=== PATIENT | female | born 1970 | race Caucasian/White ===

== ENCOUNTER → 2018-09-11 08:17 | Outpatient (CLI) | payer OTHER, SELFPAY ==
[2018-09-11 09:51] LABS: Absolute Lymphocyte Count 1.66 X10^3/ul (0.83-4.51); Absolute Neutrophil Count 3.7 X10^3/uL (2.0-7.7); Basophil# 0.02 X10^3/uL; Basophil% 0.3 % (0-1); Eosinophil# 0.18 X10^3/uL; Hematocrit 38.4 % (37-47); Hemoglobin 13.1 g/dl (12.0-15.0); Lymphocyte # 1.66 X10^3/ul (4.0); Lymphocyte % 27.7 % (19-41); Mean Corp Hgb Conc 34.1 g/gl (32-36); Mean Corpuscular Hgb 28.7 pg (27.0-32.0); Mean Corpuscular Volume 84.2 fL (81-99); Mean Platelet Vol. 9.8 fl (6.2-12.0); Monocyte# 0.45 X10^3/uL; Monocyte% 7.5 % (0-10); Neutrophil # 3.67 X10^3/uL (2.7-7.7); Neutrophil % 61.2 % (47-70); Platelet Count 305 K/mm3 (150-450); RBC Distribution Width CV 13.3 % (11.6-14.6); Red Blood Count 4.56 M/mm3 (4.2-5.4)
[2018-09-11 09:55] LABS: POSITIVE COUNT NO; POSITIVE DIFFERENTIAL NO; POSITIVE MORPHOLOGY NO
[2018-09-11 10:19] LABS: Color, Urine Yellow (Yellow); Glucose, Dipstick Normal (Normal); Ketone-Dipstick Negative (Negative); Leukocyte Esterase-Dipstick Negative /ul (Negative); Nitrite-Dipstick Negative (Negative); Occult Blood-Urine 10 /ul (Negative); Protein-Dipstick Negative (Negative); Urine Bilirubin Dipstick Negative (Negative); Urine Clarity Sl. Cloudy (Clear); Urine Urobilinogen Normal (Normal); Urine pH 6.5 (5.0 - 8.0)
[2018-09-11 10:29] LABS: AST(SGOT) 13 U/L (15-37); Alanine Aminotransfer ALT/SGPT 16 U/L (13-56); Albumin, Serum 3.3 g/dL (3.2-5.0); Alkaline Phosphatase 102 U/L (45-117); Anion Gap 8 (5-15); BUN 7 mg/dL (7-18); Calcium,Total 8.2 mg/dL (8.5-10.1); Chloride 109 mmol/L (98-107); Cholesterol 156 mg/dL (200); Creatinine, Serum 0.88 mg/dL (0.55-1.02); EST Glomerular Filtration Rate 74 mL/min (>60); Est Glom Filt Rate - Afr Amer 90 mL/min (>60); Globulin 3.4 g/dL (2.2-4.2); Glucose 85 mg/dL (74-106); High Density Lipoprotein 45 mg/dL; Potassium 3.8 mmol/L (3.5-5.1); Protein, Total 6.7 g/dL (6.4-8.2); Sodium Level 142 mmol/L (136-145); Triglycerides 65 mg/dL; Very Low Density Lipoprotein 13 mg/dL (5-40)
[2018-09-11 10:30] LABS: Vitamin D,25 Hydroxy 48.9 ng/mL (29.95-100.01)
--- OUTSIDE RECORDS SUMMARY | 2018-11-13 15:37 | XMS RPT_ITS ---
:1970 Author Organization [facility] Care Team Providers Name Role Phone KAYLEY GONZALES (KELBY) Attending Unavailable KAYLEY GONZALES (KELBY) Referring Unavailable KAYLEY GONZALES (KELBY) Referring Unavailable Lio Crisostomo Attending Unavailable Lio Crisostomo Referring Unavailable Lio Crisostomo Primary Care Unavailable PROBLEMS PROBLEMS DATE TYPE CONDITION / CODE ATTENDING STATUS SOURCE 09/11/2018 Unknown Z00.00 - Encounter Lio Crisostomo Active [place] for [facility] examination Repository without abnormal findings / Z00.00(ICD-10) 03/31/2018 Active Excessive and NA Active [facility] frequent Main [place] menstruation with Repository regular cycle / N92.0(ICD-10) 03/31/2018 Active Other malaise / NA Active [facility] R53.81(ICD-10) [place] Repository 03/31/2018 Active Other fatigue / NA Active [facility] R53.83(ICD-10) [place] Repository PROCEDURES PROCEDURES No Procedure Records FoundRESULTS RESULTS CBC W/DIFF, AUTOMATED Collected: 09/11/2018 Status: F Source: [place] 8:[place] [facility] [place] CODE TESTS RESULT OUT OF RANGE REFERENCE UNITS LAB L100.1000 4.4-11.0 K/mm3 Normal WBC 6.0 LAB L100.1200 4.2-5.4 M/mm3 Normal RBC 4.56 LAB L100.1300 12.0-15.0 g/dl Normal HGB 13.1 LAB L100.1400 37-47 % Normal HCT 38.4 LAB L100.1500 81-99 fL Normal MCV 84.2 LAB L100.1600 27.0-32.0 pg Normal MCH 28.7 LAB L100.1700 32-36 g/gl Normal MCHC 34.1 LAB L100.1810 11.6-14.6 % Normal RDW CV 13.3 LAB L100.1820 35.1-43.9 fl Normal RDW SD 40.0 LAB L100.1900 150-450 K/mm3 Normal PLT 305 LAB L100.2000 6.2-12.0 fl Normal MPV 9.8 LAB L100.2100 47-70 % Normal NEUT% 61.2 LAB L100.2200 19-41 % Normal LY% 27.7 LAB L100.2300 0-10 % Normal MONO% 7.5 LAB L100.2400 0-5 % Normal EO% 3.0 LAB L100.2500 0-1 % Normal BASO% 0.3 LAB L100.2550 0.0-0.9 % Normal IM GRAN % 0.300 Result Comment: IG% - Immature Granulocytes (promyelocytes, myelocytes and metamyelocytes) > 1% indicates that a LEFT SHIFT is Present. LAB L100.2620 2.0-7.7 X10 3/uL Normal Absolute Neut 3.7 LAB L100.2720 0.83-4.51 X10 3/ul Normal Absolute Lymph 1.66 Performed By: #### L100.0100 #### [facility] [address] [place] [address]. [place], [place], [address] URINALYSIS, ROUTINE Collected: 09/11/2018 Status: F Source: [place] ([place]) 8:[place] [facility] [place] Order Comment: How was Urine Obtained? CLEAN CATCH TYPE CODE TESTS RESULT OUT OF RANGE REFERENCE UNITS LAB L400.3000 Yellow COLOR Normal Yellow LAB L400.3050 Clear Normal CLARITY Sl. Cloudy LAB L400.3200 Normal mg/dl Normal GLUCOSE, UR Normal LAB L400.3300 Negative mg/dL Normal BILIRUBIN URINE Negative LAB L400.3400 Negative mg/dl Normal KETONE UR Negative LAB L400.3465 1.002-1.030 Normal SP.GR. DIPSTX 1.010 LAB L400.3550 5.0 - 8.0 pH UR Normal 6.5 LAB L400.3600 Negative mg/dl PROT Normal DIPSTX Negative LAB L400.3700 Normal mg/dl Normal UROBILI Normal LAB L400.3750 Negative Normal NITRITE UR Negative LAB L400.3780 Negative /ul High 10 OCCULT BLOOD-UR LAB L400.3800 Negative /ul LEUK Normal ESTERASE Negative Performed By: #### L400.2010 #### [facility] [address] [place], [address] COMPREHENSIVE METABOLIC Collected: 09/11/2018 Status: F Source: [facility] 8:[place] AM [facility] [place] CODE TESTS RESULT OUT OF RANGE REFERENCE UNITS LAB L501.0100 74-106 mg/dL Normal GLU 85 Result Comment: Please note revised GLUCOSE reference range effective 2017. LAB L501.1000 7-18 mg/dL Normal BUN 7 LAB L501.1100 0.55-1.02 mg/dL Normal CREAT,SERUM 0.88 Result Comment: The validity of the calculated GFR AND GFRAA in patients over 70 years has not been determined. Clinical correlation is essential. LAB L501.1110 >60 mL/min Normal EST GFR 74 Result Comment: Non- GFR Calc LAB L501.1115 >60 mL/min Normal EST GFR - AA 90 Result Comment: GFR Calc LAB L501.1300 10-20 RATIO Low BUN/CRE 8.0 LAB L501.1500 6.4-8.2 g/dL Normal T PROT 6.7 LAB L501.1800 3.2-5.0 g/dL Normal ALB 3.3 LAB L501.1950 2.2-4.2 g/dL Normal GLOB 3.4 LAB L501.2000 0.9-2.4 RATIO Normal A/G 1.0 LAB L501.2200 8.5-10.1 mg/dL Low CA 8.2 LAB L501.4100 15-37 U/L Low AST 13 LAB L501.4305 45-117 U/L Normal ALK P 102 LAB L501.4405 13-56 U/L Normal ALT 16 LAB L501.4600 0.20-1.00 mg/dL Normal T BILI 0.20 LAB L501.5300 136-145 mmol/L Normal NA 142 LAB L501.5600 3.5-5.1 mmol/L Normal K 3.8 LAB L501.5900 98-107 mmol/L High CL 109 LAB L501.6100 21.0-32.0 mmol/L Normal CO2 25.0 LAB L501.6200 5-15 Normal GAP 8 Performed By: #### L500.4050, L500.4100 #### [facility] [address] [facility] [place], [place], [address] LIPID PROFILE Collected: 09/11/2018 Status: F Source: [place] 8:[place] AM [facility] [place] TYPE CODE TESTS RESULT OUT OF RANGE REFERENCE UNITS LAB L501.4900 200 mg/dL Normal CHOL 156 Result Comment: <200 mg/dL Desirable 200-240 mg/dL Borderline >240 mg/dL High Risk LAB L501.5000 mg/dL Normal TRIG 65 Result Comment: The drugs N-Acetylcysteine and Metamizole may falsely depress this assay. Serum Triglycerides Reference Interval Normal <150 mg/dL Borderline high 150 - 199 mg/dL High 200 - 499 mg/dL Very High > or = 500 mg/dL LAB L501.6400 mg/dL Normal HDL 45 Result Comment: The drugs N-Acetylcysteine and Metamizole may falsely depress this assay. Reference Range HDL <40 mg/dL Low HDL Cholesterol HDL >or= 60 mg/dL High HDL Cholesterol LAB L501.6500 0-130 mg/dL Normal LDL 98 LAB L501.6600 5-40 mg/dL Normal VLDL 13 Performed By: #### L500.4050, L500.4100 #### [facility] [address] [facility] [place], [place], [address] VITAMIN D,25 HYDROXY Collected: 09/11/2018 Status: F Source: [place] 8:[place] AM [facility] [place] TYPE CODE TESTS RESULT OUT OF RANGE REFERENCE UNITS LAB L506.1000 29.95-100.01 ng/mL Normal Vitamin D 48.9 25-OH Result Comment: Vitamin D 25(OH) Status Range Deficiency <20 ng/mL (50nmol/L) Insuffciency 20 - 30 ng/mL (50 - 75 nmol/L) Sufficiency 30 - 100 ng/mL (75 - 250 nmol/L) Toxicity >100 ng/mL (>250 nmol/L) Performed By: #### L506.1000 #### [facility] [address] [place], [address] PROGRESS Observed: 08/23/2018 Status: COMPLETED Source: [place] 9:22 AM [facility] REPOSITORY HNO ID: [id number] Author: Yary Rae Service: (none) Author Type: Physician Assistant Customer Service Manager Type: Progress Notes Filed: 08/23/2018 10:01 AM Note Text: 08/23/2018 Patient presents with: cough, congestion and ST: x 1.5 weeks SUBJECTIVE: This is a 48 year old that is here today for Complaint(s) of cough and congestion x 1.5 weeks. Has had a dry cough for the last 3-4 weeks. + intermittent SOB. Denies fever/chills, nasal congestion, wheezing, vomiting, diarrhea, sore throat. No hx of asthma, non-smoker. Overall feels well other than cough. PAST MEDICAL HISTORY Diagnosis Date - Abnormal glandular Papanicolaou smear of cervix Abn. Pap smear (cervix) - resolved. - Left thyroid nodule ALLERGIES Patient has no known allergies. MEDICATIONS Current Outpatient Prescriptions: CALCIUM CARBONATE (CALCIUM 500 ORAL) Take by mouth. Cholecalciferol, Vitamin D3, (VITAMIN D-3) 2,000 unit cap Take by mouth twice daily. FERROUS SULFATE (IRON ORAL) Take by mouth. OTC NUTRITIONAL SUPPLEMENT Thyroidysm vitamin, 1 tablet three times daily with meals. VITAMIN B-12 50 MCG TAB Take two tablet's, two times daily No current facility-administered medications for this visit. SOCIAL HISTORY Social History Marital status: Spouse name: Abigail Years of education: 12 Number of children: 2 Occupational History Occupation Employer Comment [employer] Social History Main Topics Smoking status: Never Smoker Smokeless tobacco: Never Used Alcohol use: Yes Comment: Occasionally Drug use: No Sexual activity: Yes Partners with: Male control/protection: Vasectomy Comment: has vasectomy REVIEW OF SYSTEMS All other reviewed and negative other than HPI. OBJECTIVE: BP 138/86 Pulse 85 Temp 36.6 ?C (97.9 ?F) (Tympanic) Resp 16 Wt 116.8 kg (257 lb 6.4 oz) SpO2 98% BMI 38.01 kg/m? APPEARANCE Well appearing, alert, in no acute distress, well-hydrated, well nourished. EYES PERRLA, conjunctiva and sclera normal. EARS External ears normal, canals clear. TMs normal JAYE NOSE/SINUS Nares normal. Septum midline. Mucosa normal. No drainage or sinus tenderness. THROAT normal, no erythema NECK Supple, no adenopathy; HEART RRR with normal S1 and S2 LUNG clear to auscultation, No wheezing, rhonchi, rales. ASSESSMENT/PLAN: 1. Bronchitis - ICD9: 490, ICD10: J40 Supportive care with fluids and rest Suspect viral etiology F/u in 7-10 days (has routine check with PCP in 12 days) if not improving. Sooner if worsening - BENZONATATE 100 MG CAPSULE - PREDNISONE 20 MG TABLET Sudafed The patient indicates understanding of these issues and agrees with the plan. Reviewed red flags and when to seek care sooner. Yary Rae PA-C CNOV Observed: 08/23/2018 Status: COMPLETED Source: [place] 9:15 AM [facility] REPOSITORY Office Visit (WSTR) IRA CONDE ([id number]) 1970 F Date Time Provider Department 08/23/18 9:15 AM YARY RAE) W[facility] During your visit today, we recorded the following information about you: Temperature Pulse Respiration Blood pressure 97.9 degrees 85/minute 16/minute 138/86 Weight 116.8 kg Yary Rae PA-C 08/23/2018 10:01 AM Signed 08/23/2018 Patient presents with: cough, congestion and ST: x 1.5 weeks SUBJECTIVE: This is a 48 year old that is here today for Complaint(s) of cough and congestion x 1.5 weeks. Has had a dry cough for the last 3-4 weeks. + intermittent SOB. Denies fever/chills, nasal congestion, wheezing, vomiting, diarrhea, sore throat. No hx of asthma, non-smoker. Overall feels well other than cough. PAST MEDICAL HISTORY Diagnosis Date - Abnormal glandular Papanicolaou smear of cervix Abn. Pap smear (cervix) - resolved. - Left thyroid nodule ALLERGIES Patient has no known allergies. MEDICATIONS Current Outpatient Prescriptions: CALCIUM CARBONATE (CALCIUM 500 ORAL) Take by mouth. Cholecalciferol, Vitamin D3, (VITAMIN D-3) 2,000 unit cap Take by mouth twice daily. FERROUS SULFATE (IRON ORAL) Take by mouth. OTC NUTRITIONAL SUPPLEMENT Thyroidysm vitamin, 1 tablet three times daily with meals. VITAMIN B-12 50 MCG TAB Take two tablet's, two times daily No current facility-administered medications for this visit. SOCIAL HISTORY Social History Marital status: Spouse name: Abigail Years of education: 12 Number of children: 2 Occupational History Occupation Employer Comment [employer] Social History Main Topics Smoking status: Never Smoker Smokeless tobacco: Never Used Alcohol use: Yes Comment: Occasionally Drug use: No Sexual activity: Yes Partners with: Male control/protection: Vasectomy Comment: has vasectomy REVIEW OF SYSTEMS All other reviewed and negative other than HPI. OBJECTIVE: BP 138/86 Pulse 85 Temp 36.6 ?C (97.9 ?F) (Tympanic) Resp 16 Wt 116.8 kg (257 lb 6.4 oz) SpO2 98% BMI 38.01 kg/m? APPEARANCE Well appearing, alert, in no acute distress, well- hydrated, well nourished. EYES PERRLA, conjunctiva and sclera normal. EARS External ears normal, canals clear. TMs normal JAYE NOSE/SINUS Nares normal. Septum midline. Mucosa normal. No drainage or sinus tenderness. THROAT normal, no erythema NECK Supple, no adenopathy; HEART RRR with normal S1 and S2 LUNG clear to auscultation, No wheezing, rhonchi, rales. ASSESSMENT/PLAN: 1. Bronchitis - ICD9: 490, ICD10: J40 Supportive care with fluids and rest Suspect viral etiology F/u in 7-10 days (has routine check with PCP in 12 days) if not improving. Sooner if worsening - BENZONATATE 100 MG CAPSULE - PREDNISONE 20 MG TABLET Sudafed The patient indicates understanding of these issues and agrees with the plan. Reviewed red flags and when to seek care sooner. Yary Rae PA-C Referring Provider: SELF [200] Allergies As of Date: 08/23/2018 (No Known Allergies) Date Reviewed: 08/23/2018 Reviewed by: Yaa Priest LPN - Fully Assessed Reason for Visit: cough, congestion and ST [Other] Cmt: x 1.5 weeks Primary Visit Diagnosis:Bronchitis [J40] Order(s):benzonatate (TESSALON PERLES) 100 mg capsuleTake 1 capsule by mouth three times daily as needed for Cough.Disp: 30 capsuleRfl: 0 predniSONE (DELTASONE) 20 mg tabletTake 2 tablets by mouth once daily for 5 days.Disp: 10 tabletRfl: 0 Prescriptions as of 08/23/2018 Sig: CALCIUM 500 ORAL Take by mouth. CHOLECALCIFEROL (VITAMIN D3) * Take by mouth twice daily. IRON ORAL Take by mouth. OTC NUTRITIONAL SUPPLEMENT Thyroidysm vitamin, 1 tablet * * VITAMIN B-12 50 MCG TABLET Take two tablet's, two times * BENZONATATE 100 MG CAPSULE Take 1 capsule by mouth three* PREDNISONE 20 MG TABLET Take 2 tablets by mouth once * Problem List As Of Date 08/23/2018 Noted Resolved Thyroid nodule [E04.1] INVALID FOR* Menometrorrhagia [N92.1] INVALID FOR* Prescriptions ordered this encounter Disp Refills Start End BENZONATATE 100 MG CAPSULE 30 c* 0 08/23/2018 Route: ORAL Sig: Take 1 capsule by mouth three times daily as needed for Cough. PREDNISONE 20 MG TABLET 10 t* 0 08/23/2018 08/28/2018 Route: ORAL Sig: Take 2 tablets by mouth once daily for 5 days. Encounter Status:Closed by YARY RAE PA-C on 08/23/18 CBC AND DIFFERENTIAL Collected: 03/31/2018 Status: F Source: [place] 9:02 AM [facility] [place] REPOSITORY TYPE CODE TESTS RESULT OUT OF REFERENCE UNITS RANGE LAB WBC 3.70-11.00 k/uL WBC 6.88 LAB RBC 3.90-5.20 m/uL RBC 4.45 LAB HGB 11.5-15.5 g/dL Hemoglobin 12.6 LAB HCT 36.0-46.0 % Hematocrit 40.1 LAB MCV 80.0-100.0 fL MCV 90.1 LAB MCH 26.0-34.0 pG MCH 28.3 LAB MCHC 30.5-36.0 g/dL MCHC 31.4 LAB RDWCV 11.5-15.0 % RDW-CV 13.2 LAB PLTCT 150-400 k/uL Platelet Count 284 LAB MPV 9.0-12.7 fL MPV 9.7 LAB ANEUT % Neut% 61.1 LAB AANEUT 1.45-7.50 k/uL Abs Neut 4.20 LAB ALYMP % Lymph% 25.6 LAB AALYMP 1.00-4.00 k/uL Abs Lymph 1.76 LAB AMONO % Glasscock% 10.3 LAB AAMONO <0.87 k/uL Abs [place]cock 0.71 LAB AEOS % Eosin% 2.6 LAB AAEOS <0.46 k/uL Abs Eosin 0.18 LAB ABASO % Baso% 0.4 LAB AABASO <0.11 k/uL Abs Baso 0.03 LAB AUNRBC 0 /100 WBC NRBCs 0.0 LAB ABNRBC <0.01 k/uL Absolute nRBC <0.01 LAB DTYP DTYPE Auto Diff Performed By: #### CBCDIF, FT4, T3, TSH #### [address] [address] FREE T4 Collected: 03/31/2018 Status: F Source: [place] 9:02 AM [facility] REPOSITORY TYPE CODE TESTS RESULT OUT OF RANGE REFERENCE UNITS LAB FT4 0.9-1.7 ng/dL Free T4 1.1 Performed By: #### CBCDIF, FT4, T3, TSH #### [facility] [place] [address] [place], [place] [address] T3 Collected: 03/31/2018 Status: F Source: [facility] 9:02 AM [facility] REPOSITORY TYPE CODE TESTS RESULT OUT OF RANGE REFERENCE UNITS LAB T3 79-165 ng/dL T3 108 Performed By: #### CBCDIF, FT4, T3, TSH #### [place] [address] [place], [place] [address] TSH Collected: 03/31/2018 Status: F Source: [place] 9:02 AM [facility] REPOSITORY TYPE CODE TESTS RESULT OUT OF RANGE REFERENCE UNITS LAB TSH 0.400-5.500 uU/mL TSH 1.570 Result Comment: If the patient is , TSH reference range varies by gestational period: First Trimester 0.100-2.500 uU/mL Second Trimester 0.200-3.000 uU/mL Third Trimester 0.300-3.000 uU/mL References: 1. Mendoza, Yury M, Suraj EK, et al. Management of Thyroid Dysfunction during and : An Endocrine Society Clinical Practice Guideline. J Clin Endocrinol Metab, 2012:97:3622-4035. 2. Nguyễn DAY. Overview of thyroid disease in . UpToDate. 2016. Accessed on February 06, 2016. Performed By: #### CBCDIF, FT4, T3, TSH #### [facility] [address] [place] [id number] PROGRESS Observed: 03/31/2018 Status: COMPLETED Source: [place] 8:06 AM [facility] REPOSITORY HNO ID: [id number] Author: Kayley Gonzales Service: (none) Author Type: Nurse Practitioner Type: Progress Notes Filed: 03/31/2018 9:29 AM Note Text: Ira Conde is a 47 year old who presents for her annual gynecologic exam without complaints. Wondering if change in menses due to thyroid - had left thyroid lobectomy in 2014. Has been feeling low energy. Menses: cycles every 28-30 days and 8 days of flow. Menses consists of 3 days of spotting followed by 2-3 days of heavy flow and 2 days of light flow. Instead of one heavy day of flow as in the past, now has 2-3 days. Passes quarter-size clots 3-4 times daily. Mild cramping. Changes have been over the past 4 months. Contraception: vasectomy HPV vaccine: No Last Pap: 2013 normal HPV: negative History of abnormal pap: Yes 1997 Last mammogram: 2013normal Sexually active: Yes Patient concerns for STD exposure: No. Time with current partner: 30 years Pain with intercourse: No Postcoital bleeding: No Hot flashes: No Night sweats: No Exercise: 3 times a week for 30 minutes. Type: walking, gardening Diet: balanced diet Seatbelt use: No, encouraged Obstetric History T2 L2 SAB0 TAB0 Ectopic0 Multiple0 Live Births0 PAST MEDICAL HISTORY Diagnosis Date - Abnormal glandular Papanicolaou smear of cervix Abn. Pap smear (cervix) - resolved. - Left thyroid nodule PAST SURGICAL HISTORY Procedure Laterality Date - CERVICAL BIOPSY OR EXCISION 1997 - ENDOMETRIAL BIOPSY 03/14/2015 - KNEE SURGERY HX 2010 left knee - PAST SURGICAL HISTORY OF 07/23/2005 Rt knee replace ACL - PAST SURGICAL HISTORY OF 02/2008 Rt knee surgery x3 surgeries - PAST SURGICAL HISTORY OF Right 2015 right shoulder suregery - THYROID LOBECTOMY,UNILAT 09/19/14 Left FAMILY HISTORY Problem Relation Age of Onset - Hypertension Brother MOTHER , FATHER AND BROTHER / HTN - Diabetes Paternal Grandmother - Hypoglycemia [Other] [OTHER] Maternal Grandfather SOCIAL HISTORY Social History Substance Use Topics - Smoking status: Never Smoker - Smokeless tobacco: Never Used - Alcohol use Yes Comment: Occasionally REVIEW OF SYSTEMS Abdomen: No abdominal pain, nausea, vomiting, diarrhea, or constipation. No bloating, early satiety, indigestion, or increased flatulence. Bladder: No dysuria, gross hematuria, urinary frequency, urinary urgency, or incontinence. Breast: No breast lumps, nipple d/c, overlying skin changes, redness or skin retraction. Allergies and current medication updated:Yes EXAM: BP 118/76 Ht 5' 9 (1.75m) Wt 248 lb (112.5kg) LMP 03/18/2018 BMI 36.61 kg/(m2). GENERAL: pleasant, female in no apparent distress HEENT: Normocephalic, atraumatic, mucus membranes moist and no lesions NECK: Supple, full range of motion, no adenopathy and thyroid normal DERMATOLOGY: Normal, without lesions, non-icteric. Hirsutism face, breast, abdomen, buttocks BREAST: soft, non-tender, symmetric, no dominant mass, normal nipple-areolar complex, no lymphadenopathy and no nipple discharge CHEST: Normal inspiratory effort ABDOMEN: soft, non-tender and no masses PELVIC: external genitalia normal, normal Bartholin's glands, urethra, Wheatcroft's glands, no vulvar lesions, no cervical lesions, physiologic discharge present, normal appearing perineal body and perianal region, needs green speculum due to poor vaginal wall support BIMANUAL: uterus normal size, shape and consistency, no adnexal masses RECTOVAGINAL: deferred. NEURO: alert and oriented x3,exam grossly non-focal EXTREMITIES: normal ASSESSMENT/PLAN: 1) Health maintenance: Pap/HPV up to date. Mammogram ordered. Nutrition, exercise and routine health maintenance exams reviewed. Calcium/Vitamin D supplementation information provided. 2) Contraception: vasectomy. Contraceptive options reviewed and information provided. 3) STD screening: Declined STD check. 4. Menorrhagia with regular cycle - ICD9: 626.2, ICD10: N92.0 - Discussed changes in menses. Ira will call me if menstrual bleeding increases. Will check thyroid labs. - TSH BLD - T3 BLD - T4 FREE/FREE THYROX 5. Malaise and fatigue - ICD9: 780.79, ICD10: R53.81, R53.83 - TSH BLD - T3 BLD - T4 FREE/FREE THYROX - CBC + DIFF 6) Follow up one year or sooner as needed. Dr Crisostomo is PCP. Kayley Gonzales APRN.KELBY CNOV Observed: 03/31/2018 Status: COMPLETED Source: [place] 8:00 AM [facility] REPOSITORY Office Visit (WOOB) IRA CONDE ([id number]) 1970 F Date Time Provider Department 03/31/18 8:00 AM KAYLEY GONZALES (SEPTIC TANK SERVICER) [place] During your visit today, we recorded the following information about you: Blood pressure Weight Height Last Period 118/76 112.5 kg 1.753 m 03/18/18 Kayley Gonzales APRN.KELBY 03/31/2018 9:29 AM Signed Ira Conde is a 47 year old who presents for her annual gynecologic exam without complaints. Wondering if change in menses due to thyroid - had left thyroid lobectomy in 2014. Has been feeling low energy. Menses: cycles every 28-30 days and 8 days of flow. Menses consists of 3 days of spotting followed by 2-3 days of heavy flow and 2 days of light flow. Instead of one heavy day of flow as in the past, now has 2- 3 days. Passes quarter-size clots 3-4 times daily. Mild cramping. Changes have been over the past 4 months. Contraception: vasectomy HPV vaccine: No Last Pap: 2013 normal HPV: negative History of abnormal pap: Yes 1997 Last mammogram: 2013normal Sexually active: Yes Patient concerns for STD exposure: No. Time with current partner: 30 years Pain with intercourse: No Postcoital bleeding: No Hot flashes: No Night sweats: No Exercise: 3 times a week for 30 minutes. Type: walking, gardening Diet: balanced diet Seatbelt use: No, encouraged Obstetric History T2 L2 SAB0 TAB0 Ectopic0 Multiple0 Live Births0 PAST MEDICAL HISTORY Diagnosis Date - Abnormal glandular Papanicolaou smear of cervix Abn. Pap smear (cervix) - resolved. - Left thyroid nodule PAST SURGICAL HISTORY Procedure Laterality Date - CERVICAL BIOPSY OR EXCISION 1997 - ENDOMETRIAL BIOPSY 03/14/2015 - KNEE SURGERY HX 2010 left knee - PAST SURGICAL HISTORY OF 07/23/2005 Rt knee replace ACL - PAST SURGICAL HISTORY OF 02/2008 Rt knee surgery x3 surgeries - PAST SURGICAL HISTORY OF Right 2014 right shoulder suregery - THYROID LOBECTOMY,UNILAT 09/19/14 Left FAMILY HISTORY Problem Relation Age of Onset - Hypertension Brother MOTHER , FATHER AND BROTHER / HTN - Diabetes Paternal Grandmother - Hypoglycemia [Other] [OTHER] Maternal Grandfather SOCIAL HISTORY Social History Substance Use Topics - Smoking status: Never Smoker - Smokeless tobacco: Never Used - Alcohol use Yes Comment: Occasionally REVIEW OF SYSTEMS Abdomen: No abdominal pain, nausea, vomiting, diarrhea, or constipation. No bloating, early satiety, indigestion, or increased flatulence. Bladder: No dysuria, gross hematuria, urinary frequency, urinary urgency, or incontinence. Breast: No breast lumps, nipple d/c, overlying skin changes, redness or skin retraction. Allergies and current medication updated:Yes EXAM: BP 118/76 Ht 5' 9 (1.75m) Wt 248 lb (112.5kg) LMP 03/18/2018 BMI 36.61 kg/(m2). GENERAL: pleasant, female in no apparent distress HEENT: Normocephalic, atraumatic, mucus membranes moist and no lesions NECK: Supple, full range of motion, no adenopathy and thyroid normal DERMATOLOGY: Normal, without lesions, non-icteric. Hirsutism face, breast, abdomen, buttocks BREAST: soft, non-tender, symmetric, no dominant mass, normal nipple-areolar complex, no lymphadenopathy and no nipple discharge CHEST: Normal inspiratory effort ABDOMEN: soft, non-tender and no masses PELVIC: external genitalia normal, normal Bartholin's glands, urethra, Wheatcroft's glands, no vulvar lesions, no cervical lesions, physiologic discharge present, normal appearing perineal body and perianal region, needs green speculum due to poor vaginal wall support BIMANUAL: uterus normal size, shape and consistency, no adnexal masses RECTOVAGINAL: deferred. NEURO: alert and oriented x3,exam grossly non-focal EXTREMITIES: normal ASSESSMENT/PLAN: 1) Health maintenance: Pap/HPV up to date. Mammogram ordered. Nutrition, exercise and routine health maintenance exams reviewed. Calcium/Vitamin D supplementation information provided. 2) Contraception: vasectomy. Contraceptive options reviewed and information provided. 3) STD screening: Declined STD check. 4. Menorrhagia with regular cycle - ICD9: 626.2, ICD10: N92.0 - Discussed changes in menses. Ira will call me if menstrual bleeding increases. Will check thyroid labs. - TSH BLD - T3 BLD - T4 FREE/FREE THYROX 5. Malaise and fatigue - ICD9: 780.79, ICD10: R53.81, R53.83 - TSH BLD - T3 BLD - T4 FREE/FREE THYROX - CBC + DIFF 6) Follow up one year or sooner as needed. Dr Crisostomo is PCP. Kayley Gonzales APRN.KELBY Lee Ma 03/31/2018 8:23 AM Signed [employer] offered: Patient declines. Kayley Gonzales APRN.KELBY 03/31/2018 8:47 AM Signed Menopause Symptoms Not all women experiences menopause in the same way. For some, menopause can bring on an array of uncomfortable symptoms. Others may experience few if any discomforts. This information has been prepared to help you manage the most common changes associated with the midlife transition. RELIEVING HOT FLASHES * Identify and avoid your hot flash triggers. Common triggers may include stress, caffeine, alcohol, spicy foods, tight clothing, heat and cigarette smoke. * Keep the bedroom cool. Use fans during the day. Wear light layers of clothes with natural fibers. * Try deep, slow abdominal paced breathing (6 to 8 breaths per minute). Practice deep breathing for 15 minutes in the morning, 15 minutes in the evening and at the onset of hot flashes. * Exercise daily. Walking, swimming, dancing and bicycling with helmet are good choices along with yoga. * Add soy protein in the form of food (40-60 mg) to your diet daily in place of animal protein. Promensil and isoflavone tablets have NOT been shown to significantly help menopausal symptoms * Black cohosh (in the form of Remifemin) can be used for hot flashes and has been approved by [place] [employer] for only 6 months of use, however has NOT been well studied in the [place] for truck terminal manager effects and THERE HAVE BEEN REPORTS OF LIVER TOXICITY WITH BLACK COHOSH USE. (Avoid kava kava, valerian root and beware that most herbal products are NOT regulated in the [place] and some have been associated with liver toxicity) NOTE: HORMONE THERAPY (HT) is the MOST EFFECTIVE treatment and the only FDA approved treatment for menopausal symptoms. Any form of hormones, including 'bioidentical' hormones have risks as well as benefits. * Antidepressants like Effexor (venlaflaxine) a NSRI or Pristiq (desvenlafaxine) another agent, Neurontin (gabapentin) may help block hot flashes and all have risks and benefits like any prescription or off the shelf medicine. * Use of Bellergal is discouraged as it contains an addictive barbiturate. RELIEVING INSOMNIA * Keep the bedroom cool to prevent night sweats. Special chill pillows that are cool are available. * Avoid using sleeping pills. * Exercise daily but not right before bedtime. * Avoid caffeine and alcohol at night. * Take a warm shower at bedtime. COPING WITH MOOD SWINGS, FEARS AND DEPRESSION * Find a self-calming skill to practice, such as yoga, meditation or slow deep breathing. * Avoid tranquilizers, if possible, however prescription anti- depressants can be very effective. * Engage in a creative outlet that fosters a sense of achievement. * Stay connected with your family and community; nurture your friendships. RELIEVING PAINFUL INTERCOURSE * Try using a vaginal water-based moisturizing lotion 3 times a week (like Replens or SILK-E) or lubricant during intercourse like KY jelly or Astroglide. *Local estrogen treatments for the vagina/bladder are available as a cream, tablet or vaginal ring. HELPFUL WEB SITES www.menopause.org www.[facility] Referring Provider: KAYLEY GONZALES ([facility]) [[id number]] Allergies As of Date: 03/31/2018 (No Known Allergies) Date Reviewed: 03/31/2018 Reviewed by: Kayley (Plaster Patternmaker) Vince - Fully Assessed Primary Visit Diagnosis:Encounter for gynecological examination without abnormal finding [Z01.419] Other Visit Diagnoses:Menorrhagia with regular cycle [N92.0] Encounter for screening mammogram for malignant neoplasm of breast [Z12.31] Malaise and fatigue [R53.81, R53.83] Order(s):TSH BLD [SQTSH] Order #: [id number] FUTURE KB SCREENING [7669744] Order #: [id number] FUTURE T3 BLD [SQT3] Order #: [id number] FUTURE T4 FREE/FREE THYROX [SQFT4] Order #: [id number] FUTURE CBC + DIFF [SQCBCDIF] Order #: [id number] FUTURE Prescriptions as of 03/31/2018 Sig: OTC NUTRITIONAL SUPPLEMENT Thyroidysm vitamin, 1 tablet * CALCIUM 500 ORAL Take by mouth. CHOLECALCIFEROL (VITAMIN D3) * Take by mouth twice daily. * VITAMIN B-12 50 MCG TABLET Take two tablet's, two times * IRON ORAL Take by mouth. Medication notes this encounter OTC NUTRITIONAL SUPPLEMENT >> Nayely Lee Ma 03/31/2018 8:03 AM >> NAYELY LEE MA Mar 31, 2018 8:03 AM VITAMIN E 1,000 UNIT CAPSULE >> Nayely Lee Ma 03/31/2018 8:03 AM >> NAYELY LEE MA Mar 31, 2018 8:03 AM Problem List As Of Date 03/31/2018 Noted Resolved Thyroid nodule [E04.1] INVALID FOR* Menometrorrhagia [N92.1] INVALID FOR* Other instructions from your clinician: Menopause Symptoms Not all women experiences menopause in the same way. For some, menopause can bring on an array of uncomfortable symptoms. Others may experience few if any discomforts. This information has been prepared to help you manage the most common changes associated with the midlife transition. RELIEVING HOT FLASHES * Identify and avoid your hot flash triggers. Common triggers may include stress, caffeine, alcohol, spicy foods, tight clothing, heat and cigarette smoke. * Keep the bedroom cool. Use fans during the day. Wear light layers of clothes with natural fibers. * Try deep, slow abdominal paced breathing (6 to 8 breaths per minute). Practice deep breathing for 15 minutes in the morning, 15 minutes in the evening and at the onset of hot flashes. * Exercise daily. Walking, swimming, dancing and bicycling with helmet are good choices along with yoga. * Add soy protein in the form of food (40-60 mg) to your diet daily in place of animal protein. Promensil and isoflavone tablets have NOT been shown to significantly help menopausal symptoms * Black cohosh (in the form of Remifemin) can be used for hot flashes and has been approved by [place] [employer] for only 6 months of use, however has NOT been well studied in the [place] for truck terminal manager effects and THERE HAVE BEEN REPORTS OF LIVER TOXICITY WITH BLACK COHOSH USE. (Avoid kava kava, valerian root and beware that most herbal products are NOT regulated in the [place] and some have been associated with liver toxicity) NOTE: HORMONE THERAPY (HT) is the MOST EFFECTIVE treatment and the only FDA approved treatment for menopausal symptoms. Any form of hormones, including 'bioidentical' hormones have risks as well as benefits. * Antidepressants like Effexor (venlaflaxine) a NSRI or Pristiq (desvenlafaxine) another agent, Neurontin (gabapentin) may help block hot flashes and all have risks and benefits like any prescription or off the shelf medicine. * Use of Bellergal is discouraged as it contains an addictive barbiturate. RELIEVING INSOMNIA * Keep the bedroom cool to prevent night sweats. Special chill pillows that are cool are available. * Avoid using sleeping pills. * Exercise daily but not right before bedtime. * Avoid caffeine and alcohol at night. * Take a warm shower at bedtime. COPING WITH MOOD SWINGS, FEARS AND DEPRESSION * Find a self-calming skill to practice, such as yoga, meditation or slow deep breathing. * Avoid tranquilizers, if possible, however prescription anti-depressants can be very effective. * Engage in a creative outlet that fosters a sense of achievement. * Stay connected with your family and community; nurture your friendships. RELIEVING PAINFUL INTERCOURSE * Try using a vaginal water-based moisturizing lotion 3 times a week (like Replens or SILK-E) or lubricant during intercourse like KY jelly or Astroglide. *Local estrogen treatments for the vagina/bladder are available as a cream, tablet or vaginal ring. HELPFUL WEB SITES www.menopause.org [email or web address] Visit Notes: >> Nayely Lee Ma TueMar 31, 2018 8:09 AM Status: Signed [employer] offered: Patient declines. Medications Discontinued During This Encounter VITAMIN E 1,000 UNIT CAP 0 09/13/2005 03/31/2018 Class: OTC Route: ORAL Sig: Take one(1) tablet daily. Disc: Reason for discontinue is not on file. OTC NUTRITIONAL SUPPLEMENT 0 09/13/2005 03/31/2018 Class: OTC Sig: Multi-vitamin, Take one(1) tablet daily. Disc: Reason for discontinue is not on file. Disposition: Return in 1 year (on 03/31/2019) for Annual Exam. Follow-up and Disposition History Recorded Encounter Status:Closed by KAYLEY GONZALES on 03/31/18 ALLERGIES ALLERGIES DATE TYPE / CODE NAME / CODE REACTION SEVERITY SOURCE 09/16/2014 Drug No Known Unknown [facility] Allergy/416 Allergies/[id number] [facility] [id number](SNOM 0388(RXNORM) Repository ED CT) Drug NO KNOWN [facility] Class/73235 ALLERGIES Main [place] 1003(SNOMED Repository CT) ENCOUNTERS ENCOUNTERS ADMIT/DISCHARGE ACCOUNT ADMITTING ENCOUNTER LOCATION SOURCE NUMBER CLASS 09/11/[id number] [facility] ing:LAB Repository 08/23/2018/08/24/19 [id number] Ambulatory [address] Main [place] Repository 03/31/2018/03/31/20 [id number] Ambulatory [address] Repository 03/31/2018/04/03/20 [id number] Ambulatory [address] Repository PAYERS PAYERS ENCOUNTER GUARANTOR PAYER SUBSCRIBER SOURCE 09/11/2018 ABIGAIL Apod[place] Primary ABIGAIL [id number] Insurance:AULTCAREPol KARINTDOB: [facility] [place] Number: [id number] [id number] [place], [place] [address]Hqg: Date:[id number], [place] ([place]) [phone]: 09/11/2018 Secondary NOT GIVENFRED Callejas Insurance:SELF PAY [facility] ([place], [place]) Number: Effective Repository Date:2018-09-11
== END ==
PROVIDERS: Family Provider Family Medicine; PCP Family Medicine; Referring Provider Family Medicine; Visit Provider Family Medicine
DX: Z00.00 Encounter for general adult medical examination without abnormal findings (principal)
CPT/HCPCS: 36415; 80053; 80061; 81002; 82306; 85025

== ENCOUNTER → 2018-10-23 08:09 | Outpatient (CLI) | payer OTHER, SELFPAY ==
[2018-10-23 09:22] LABS: T3 Total - Triiodothyronine 1.05 ng/mL (0.6-1.81)
[2018-10-23 09:25] LABS: T4 Total, Thyroxin 11.7 ug/dL (4.8-13.9); Thyroid Stim Hormone (TSH) 1.08 uIU/mL (0.358-3.74)
== END ==
PROVIDERS: Family Provider Family Medicine; PCP Family Medicine; Referring Provider Family Medicine; Visit Provider Family Medicine
DX: R53.83 Other fatigue (principal)
CPT/HCPCS: 36415; 84436; 84443; 84480

== ENCOUNTER → 2020-02-14 | Outpatient (CLI) | payer OTHER, SELFPAY ==
[2020-02-14 08:34] LABS: Hematocrit 38.5 % (37-47); Hemoglobin 12.3 g/dL (12.0-15.0); Mean Corp Hgb Conc 31.9 g/dL (32-36); Mean Corpuscular Hgb 27.1 pg (27.0-32.0); Mean Corpuscular Volume 84.8 fL (81-99); Mean Platelet Vol. 9.3 fl (6.2-12.0); Platelet Count 322 K/mm3 (150-450); RBC Distribution Width CV 13.6 % (11.6-14.6); RBC Distribution Width SD 41.8 fl (35.1-43.9); Red Blood Count 4.54 M/mm3 (4.2-5.4); White Blood Count 8.9 K/mm3 (4.4-11.0)
[2020-02-14 08:43] LABS: ALB/GLOB Ratio 0.9 RATIO (0.9-2.4); AST(SGOT) 14 U/L (15-37); Alanine Aminotransfer ALT/SGPT 21 U/L (13-56); Albumin, Serum 3.4 g/dL (3.2-5.0); Alkaline Phosphatase 117 U/L (45-117); Anion Gap 5 (5-15); BUN 9 mg/dL (7-18); BUN/Creat Ratio 10.8 RATIO (10-20); Calcium,Total 8.5 mg/dL (8.5-10.1); Chloride 105 mmol/L (98-107); Creatinine, Serum 0.84 mg/dL (0.55-1.02); EST Glomerular Filtration Rate 78 mL/min (>60); Est Glom Filt Rate - Afr Amer 94 mL/min (>60); Globulin 3.6 g/dL (2.2-4.2); Glucose 97 mg/dL (74-106); Sodium Level 138 mmol/L (136-145)
[2020-02-15 06:10] LABS: Carcinoembryonic Antigen 1.6 ng/mL (0.0-4.7)
== END | disposition home or self-care (01) ==
LOC: LAB 07:54
PROVIDERS: PCP Family Medicine; Referring Provider Colon & Rectal Surgery; Visit Provider Colon & Rectal Surgery
DX: Z85.038 Personal history of other malignant neoplasm of large intestine (principal)
CPT/HCPCS: 36415; 80053; 82378; 85027

== ENCOUNTER → 2020-03-25 | Outpatient (CLI) | payer OTHER, SELFPAY ==
[2020-03-25 08:43] LABS: Color, Urine Red (Yellow); Glucose, Dipstick Normal (Normal); Ketone-Dipstick 5 mg/dl (Negative); Leukocyte Esterase-Dipstick Negative /ul (Negative); Nitrite-Dipstick Negative (Negative); Occult Blood-Urine 250 /ul (Negative); Protein-Dipstick 500 mg/dl (Negative); Specific Gravity, Urine 1.015 (1.002-1.030); Urine Bilirubin Dipstick Negative (Negative); Urine Clarity Turbid (Clear); Urine Urobilinogen Normal (Normal)
[2020-03-25 08:44] LABS: Absolute Lymphocyte Count 1.69 X10^3/uL (0.83-4.51); Absolute Neutrophil Count 3.8 X10^3/uL (2.0-7.7); Basophil# 0.03 X10^3/uL; Basophil% 0.5 % (0-1); Eosinophil# 0.31 X10^3/uL; Eosinophils% 4.8 % (0-5); Hematocrit 38.9 % (37-47); Hemoglobin 12.5 g/dL (12.0-15.0); Lymphocyte # 1.69 X10^3/ul (4.0); Mean Corp Hgb Conc 32.1 g/dL (32-36); Mean Corpuscular Hgb 26.7 pg (27.0-32.0); Mean Corpuscular Volume 83.1 fL (81-99); Mean Platelet Vol. 9.5 fl (6.2-12.0); Monocyte# 0.62 X10^3/uL; Monocyte% 9.5 % (0-10); NRBC Flagged by Analyzer 0 % (0-5); Neutrophil # 3.81 X10^3/uL (2.7-7.7); Neutrophil % 58.6 % (47-70); Platelet Count 301 K/mm3 (150-450); RBC Distribution Width CV 13.8 % (11.6-14.6); Red Blood Count 4.68 M/mm3 (4.2-5.4); White Blood Count 6.5 K/mm3 (4.4-11.0)
[2020-03-25 09:28] LABS: ALB/GLOB Ratio 0.9 RATIO (0.9-2.4); AST(SGOT) 13 U/L (15-37); Alanine Aminotransfer ALT/SGPT 19 U/L (13-56); Albumin, Serum 3.4 g/dL (3.2-5.0); Alkaline Phosphatase 105 U/L (45-117); Anion Gap 5 (5-15); BUN 12 mg/dL (7-18); BUN/Creat Ratio 12.9 RATIO (10-20); Calcium,Total 8.2 mg/dL (8.5-10.1); Chloride 107 mmol/L (98-107); Cholesterol 160 mg/dL (200); Creatinine, Serum 0.93 mg/dL (0.55-1.02); EST Glomerular Filtration Rate 68 mL/min (>60); Est Glom Filt Rate - Afr Amer 83 mL/min (>60); Globulin 3.8 g/dL (2.2-4.2); Glucose 92 mg/dL (74-106); High Density Lipoprotein 41 mg/dL; Potassium 3.9 mmol/L (3.5-5.1); Protein, Total 7.2 g/dL (6.4-8.2); Sodium Level 139 mmol/L (136-145); Thyroid Stim Hormone (TSH) 1.15 uIU/mL (0.358-3.74); Triglycerides 83 mg/dL; Very Low Density Lipoprotein 17 mg/dL (5-40)
== END | disposition home or self-care (01) ==
LOC: LAB 08:11
PROVIDERS: PCP Family Medicine; Referring Provider Family Medicine; Visit Provider Family Medicine
DX: Z00.00 Encounter for general adult medical examination without abnormal findings (principal); E03.9 Hypothyroidism, unspecified
CPT/HCPCS: 36415; 80053; 80061; 81002; 84443; 85025

== ENCOUNTER → 2020-04-24 | Outpatient (CLI) | payer OTHER, SELFPAY ==
[2020-04-24 09:38] LABS: Anion Gap 4 (5-15); BUN 10 mg/dL (7-18); BUN/Creat Ratio 10.1 RATIO (10-20); Calcium,Total 8.3 mg/dL (8.5-10.1); Chloride 104 mmol/L (98-107); EST Glomerular Filtration Rate 63 mL/min (>60); Est Glom Filt Rate - Afr Amer 77 mL/min (>60); Glucose 83 mg/dL (74-106); Potassium 3.4 mmol/L (3.5-5.1); Sodium Level 138 mmol/L (136-145); Thyroid Stim Hormone (TSH) 1.49 uIU/mL (0.358-3.74)
== END | disposition home or self-care (01) ==
PROVIDERS: PCP Family Medicine; Referring Provider Internal Medicine Endocrinology, Diabetes & Metabolism; Visit Provider Internal Medicine Endocrinology, Diabetes & Metabolism
DX: E03.8 Other specified hypothyroidism (principal)
CPT/HCPCS: 36415; 80048; 84443

== ENCOUNTER 2020-07-03 07:38 | Day surgery (SDC) | payer OTHER, SELFPAY ==
[2020-07-02 09:23] LABS: Hematocrit 37.8 % (37-47); Hemoglobin 11.9 g/dL (12.0-15.0); Mean Corp Hgb Conc 31.5 g/dL (32-36); Mean Corpuscular Hgb 25.9 pg (27.0-32.0); Mean Corpuscular Volume 82.4 fL (81-99); Mean Platelet Vol. 9.3 fl (6.2-12.0); Platelet Count 354 K/mm3 (150-450); RBC Distribution Width CV 13.3 % (11.6-14.6); RBC Distribution Width SD 39.9 fl (35.1-43.9); Red Blood Count 4.59 M/mm3 (4.2-5.4); White Blood Count 7.6 K/mm3 (4.4-11.0)
--- NOTE | 2020-07-02 16:12 | PCM.HPOB.BLA ---
- Problem List (1) DUB (dysfunctional uterine bleeding) Status: Acute History and Physical Date of Admission: 07/03/20 DATE OF SERVICE: June 20, 2020 ? PROBLEM:?DUB ? DIAGNOSIS:?DUB ? PAST SURGICAL HISTORY:? PAST SURGICAL HISTORY PAST SURGICAL HISTORY Procedure Laterality Date ? CERVICAL BIOPSY OR EXCISION ? 1997 ? ENDOMETRIAL BIOPSY ? 03/14/2015 ? KNEE SURGERY HX ? 2010 ? left knee ? OTHER ? ? ? colectomy for colon cancer - midline vertical ? PAST SURGICAL HISTORY OF ? 07/23/2005 ? Rt knee replace ACL ? PAST SURGICAL HISTORY OF ? 02/2008 ? Rt knee surgery x3 surgeries ? PAST SURGICAL HISTORY OF Right 2015 ? right shoulder suregery ? THYROID LOBECTOMY,UNILAT ? 09/19/14 ? Left? ? PAST MEDICAL HISTORY:? PAST MEDICAL HISTORY PAST MEDICAL HISTORY Diagnosis Date ? Abnormal glandular Papanicolaou smear of cervix ? ? Abn. Pap smear (cervix) - resolved. ? Left thyroid nodule ? ? SUBJECTIVE:?DUB ? SOCIAL HISTORY:? SOCIAL HISTORY Social History ? Tobacco Use ? Smoking status: Never Smoker ? Smokeless tobacco: Never Used Substance Use Topics ? Alcohol use: Yes ? ? Comment: Occasionally ? Drug use: No ? ALLERGIES ALLERGIES No Known Allergies ? Current Outpatient Medications on File Prior to Visit Medication Sig ? levothyroxine (SYNTHROID) 50 mcg tablet Take 1 tablet by mouth once daily. ? OTC NUTRITIONAL SUPPLEMENT Thyroidysm vitamin, 1 tablet three times daily with meals. ? CALCIUM CARBONATE (CALCIUM 500 ORAL) Take ?by mouth. ? FERROUS SULFATE (IRON ORAL) Take ?by mouth. ? Cholecalciferol, Vitamin D3, (VITAMIN D-3) 2,000 unit cap Take ?by mouth twice daily. No current facility-administered medications on file prior to visit.? ? OBJECTIVE: ? VITALS:? BP 136/82 ? Ht 5' 9 (1.753 m) ? Wt 252 lb (114.3 kg) ? LMP 05/26/2020 ? BMI 37.21 kg/m? ? HEENT: ?Normocephalic, atraumatic, Mucus membranes moist without lesions. ? NECK: ???Soft and Supple. ?No adenopathy , thyromegaly or bruits. ? SKIN: No lesions. ? CHEST: Clear to auscultation. ?No wheezes or rales. ?Good air exchange. ? HEART: Regular rate and rhythm ?No S3 or S4. ?No gallops or rubs. ? BACK: Nontender with no CVA tenderness. ? ABDOMEN: Soft, non-tender, non-distended, no masses, no hepatosplenomegaly. ? LOWER EXTREMITIES: There was no pitting edema, no palpable cords and no skin changes. ? ? ? ASSESSMENT:?DUB, unable to perform EMB given cervical stenosis ? PLAN:?Discussed hysteroscopy D&C. Also reviewed possible polypectomy or fibroid removal if necessary based on hysteroscopy.?The rationale for the proposed surgery was discussed in addition to risks, benefits, and alternatives. ?General pre- and post-operative care was reviewed. ?Questions were answered. ?After discussion, the patient indicated a desire to proceed with the planned surgery. ? Ximena Fagan,?DO
[2020-07-03] VITALS (8 sets, daily range): BP systolic 101–129; BP diastolic 64–89; PULSE 61–78; RESP 16–18; TEMP 36.3–36.8; O2SAT 97–100; BMI 36.6
[2020-07-03 08:03] LABS: Internal QC Validated? YES +Cl - CLEAR BKGD; Pregnancy, Urine Negative Negative
[2020-07-03] MEDS: Lactated Ringers 1,000 ML 100 ML IV (08:17)
--- NOTE | 2020-07-03 09:10 | EMB_PTH ---
PATIENT: IRA [place]ORO [place] [facility] [id number] AGE/SX: 49/F ROOM: RE07/03/[address]: Dr. Ximena Fagan DO : 1970 BED: DIS: 07/03/2020 SPEC #: [id number] RECD: 07/03/20 12:09 STATUS: AUBREY ROSAURA #: [id number] KENDALL: 07/03/20 09:[address]: Ximena Fagan DEPT: SURGICAL PATHOLOGY RECD BY: Lindsay Waite ENTERED: 07/03/20 12:35 SP TYPE: ENDOM BX/C DIPTI DR: Dr. Lio Crisostomo MD Tissues: Endometrium, NOS Procedures: Surgery Specimen Level IV HEADER OPERATION: Hysteroscopy, dilation and curettage PRE-OP DIAGNOSIS: Dysfunctional uterine bleeding TISSUE SUBMITTED: Endometrial curettings MICROSCOPIC DIAGNOSIS Endometrial curettings: Proliferative endometrium. Fragments of benign endocervical mucosa. SJ:benigno 07/04/20 MICROSCOPIC DESCRIPTION Slides are reviewed. GROSS DESCRIPTION Received in fixative is one container labeled with the patient's name and designated endometrial curettings. The specimen consists of multiple irregular fragments of hemorrhagic soft tissue mixed with mucoid tissue that in aggregate measure 5 x 3 x 0.3 cm. The entire specimen is submitted in two cassettes. / MIKE:benigno 07/03/20 TC:4 CPT: 50399
--- NOTE | 2020-07-03 09:47 | DCINST_ITS ---
Discharge Diet: No Restrictions Discharge Activity: May Not Drive - for 24 hours after surgery, May Shower Return to work on:: 07/07/20 May shower in (days): 0 May resume sexual activity in: 1 week - No intercourse, tampons, hot tubs, tub baths for 1 week until the vaginal bleeding stops Weight Bearing Status: Weight bearing as tolerated Lifting Restrictions: No restrictions Call your doctor if you observe: Fever of 101 or Higher, Inability to urinate, Inability to have a bowel movement, Using more than one pad per hour, Shortness of breath, Dizziness, Fainting spells, Swelling in the ankles, Chest pain, Increased palpitations (irregular heartbeat), Calf discomfort, Uncontrolled pain Allergies/Adverse Reactions: Allergies No Known Allergies Allergy (Verified 06/24/20 13:17) Medications to take at Discharge Biotin 5,000 mcg PO DAILY 06/24/20 Calcium Carbonate/Vitamin D3 [Calcium 600 with Vit D Chew Tb] 1 ea PO DAILY 06/24/20 Cholecalciferol (Vitamin D3) [Vitamin D3] 500 mcg PO DAILY 06/24/20 Levothyroxine [Synthroid] 50 mcg PO DAILY 06/24/20 Primary Care Physician: Lio Crisostomo MD [Primary Care Provider] - Test Results: Test results from this visit will be discussed in further detail at your follow- up appointment, if applicable. Please Follow Up With: Ximena Fagan DO When: 1 week
--- NOTE | 2020-07-03 09:49 | PCM.OPRPT ---
Problem List (1) DUB (dysfunctional uterine bleeding) Status: Acute Report of Operation Date of Procedure: 07/03/20 Pre-Operative Diagnosis: DUB, BMI 36.6, cervical stenosis Post-Operative Diagnosis: As above Surgery/Procedure Performed:: Hysteroscopy D&C Description of Surgical Findings:: Normal appearing uterine cavity. Bilateral tubal ostia were visualized. No fibroids or polyps noted. No lesions within the uterus. The endometrium is very thin appearing. Very minimal descent of uterus and cervix. Minimal to moderate amount of tissue noted on D&C. mounter smoking pipe: None Type of Anesthesia:: MAC Special Medications: None Specimen's removed: Endometrial curettings Drains: None Estimated Blood Loss (mL): < 10 cc Fluids Replaced: 1 L Description of Procedure: Start time 922 Stop time 944 She was taken to the operating room where MAC anesthesia was found to be adequate. She was prepped and draped in the dorsal lithotomy position using yellowfin stirrups. A weighted speculum was placed in the vagina to expose the cervix. The anterior lip of the cervix was grasped with a single-tooth tenaculum. The cervix was noted to be very stenotic. The cervix was unable to be easily dilated using the dilators. Using the hysteroscope, the cervix was hydrodilated, and the hysteroscope was advanced to the fundus of the uterus. The uterine cavity was visualized and noted to be normal-appearing. Bilateral tubal ostia were noted. Pictures were taken. The hysteroscope was then slowly removed. The cervical canal was noted to be normal-appearing. Hysteroscope was removed. A D&C was performed for minimal to moderate amount of tissue. The endometrial curettings were sent to pathology for review. All instruments were removed from the vagina. Vaginal bleeding was hemostatic. A vaginal sweep was performed. Instrument sponge counts were correct. The patient was taken to the cart room in stable condition. Grafts/Implants Used: None - Complications None - Admit VTE Documentation VTE Present on Admission: No VTE Mechan Device Prophylaxis: SCD's VTE Pharm Prophylaxis ordered?: No
== END 2020-07-03 11:06 | disposition home or self-care (01) ==
LOC: SDC 07:38 → AC 07:38
PROVIDERS: PCP Family Medicine; Referring Provider Obstetrics & Gynecology; Visit Provider Obstetrics & Gynecology
PROC: 0UDB8ZZ Extraction of Endometrium, Via Natural or Artificial Opening Endoscopic (ICD-10-PCS; CPT 58558; principal; 2020-07-03 09:00)
DX: N93.8 Other specified abnormal uterine and vaginal bleeding (principal); E06.9 Thyroiditis, unspecified; Z79.899 Other long term (current) drug therapy
CPT/HCPCS: 00952; 58558; 36415; 81025; 85027; 86850; 86900; 86901; 87426; 88305; C9803; J7120; J2405

== ENCOUNTER → 2020-08-08 06:46 | Outpatient (CLI) | payer OTHER, SELFPAY ==
[2020-07-03 08:01] VITALS: BMI 36.6
--- NOTE | 2020-08-08 06:56 | CT_ITS ---
STUDY: CT ABDOMEN AND PELVIS WITH CONTRAST REASON FOR EXAM: Female, 50 years old. Lower abdomen pain x months, hx colon cancer with partial colectomy, ovarian cysts, IUD, thyroid cancer, tongue cancer. RADIATION DOSAGE (If Supplied By Facility): CTDIvol = ( 17.95 ) mGy, DLP = ( 1240.75 ) mGycm TECHNIQUE: Transaxial images were obtained from the dome of the diaphragm to the symphysis pubis with oral contrast. Oral and amp; IV Readi-CAT and amp; 100mL Isovue-300 was administered. Sagittal and coronal images were reconstructed. Individualized dose optimization techniques were used for this CT. COMPARISON: Comparison is made with prior study dated 02/10/2015. FINDINGS: The visualized lung bases are unremarkable. The visualized portions of the heart are within normal limits. Normal liver. Normal gallbladder and extrahepatic biliary system. Normal spleen. Normal pancreas. Normal bilateral adrenal glands. Normal right kidney. Normal left kidney. Normal visualized stomach. Normal small intestine. Surgical anastomosis seen in the sigmoid colon. Moderate amount of fecal material is seen in the colon. The appendix is visualized and appears normal. Normal abdominal aorta. Normal inferior vena cava. There is borderline retroperitoneal lymphadenopathy with enlarged nodes no greater than 10mm in the short axis diameter. Normal urinary bladder. IUD is seen within the endometrium. There is a 3.1 cm Bard 2.65 m cyst in the left ovary. There is also evidence of a 2.6 cm x 2.9 cm cyst in the right ovary. Normal abdominal wall. Disc space narrowing and disc degeneration at the L5-S1 level. CT/Abdomen/Pelvis WITH Contrast IMPRESSION: Bilateral ovarian cysts. IUD is seen within the uterus. Surgical anastomosis is seen in the sigmoid colon. Electronically Signed: Hussain Sandhu, at 8:47 EST , Service support ,
[2020-08-08 07:11] LABS: Creatinine, Serum 0.88 mg/dL (0.55-1.02); EST Glomerular Filtration Rate 73 mL/min (>60); Est Glom Filt Rate - Afr Amer 88 mL/min (>60)
== END ==
PROVIDERS: PCP Family Medicine; Referring Provider Internal Medicine Gastroenterology; Visit Provider Internal Medicine Gastroenterology
DX: Z85.038 Personal history of other malignant neoplasm of large intestine (principal)
CPT/HCPCS: 36415; 74177; 82565; Q9967

== ENCOUNTER → 2020-08-28 11:47 | Outpatient (CLI) | payer OTHER, SELFPAY ==
[2020-07-03 08:01] VITALS: BMI 36.6
[2020-08-28 12:17] LABS: Hematocrit 39.3 % (37-47); Hemoglobin 12.5 g/dL (12.0-15.0); Mean Corp Hgb Conc 31.8 g/dL (32-36); Mean Corpuscular Hgb 26.2 pg (27.0-32.0); Mean Corpuscular Volume 82.4 fL (81-99); Mean Platelet Vol. 9.2 fl (6.2-12.0); Platelet Count 353 K/mm3 (150-450); RBC Distribution Width CV 15.6 % (11.6-14.6); RBC Distribution Width SD 46.7 fl (35.1-43.9); Red Blood Count 4.77 M/mm3 (4.2-5.4); White Blood Count 8.4 K/mm3 (4.4-11.0)
[2020-08-28 12:51] LABS: AST(SGOT) 22 U/L (15-37); Alanine Aminotransfer ALT/SGPT 23 U/L (13-56); Albumin, Serum 3.6 g/dL (3.2-5.0); Alkaline Phosphatase 112 U/L (45-117); Anion Gap 7 (5-15); BUN 8 mg/dL (7-18); BUN/Creat Ratio 9.4 RATIO (10-20); Calcium,Total 8.8 mg/dL (8.5-10.1); Chloride 103 mmol/L (98-107); Creatinine, Serum 0.85 mg/dL (0.55-1.02); EST Glomerular Filtration Rate 76 mL/min (>60); Est Glom Filt Rate - Afr Amer 92 mL/min (>60); Globulin 3.7 g/dL (2.2-4.2); Glucose 81 mg/dL (74-106); Potassium 3.8 mmol/L (3.5-5.1); Protein, Total 7.3 g/dL (6.4-8.2); Sodium Level 138 mmol/L (136-145)
[2020-08-29 08:37] LABS: Carcinoembryonic Antigen 1.4 ng/mL (0.0-4.7)
== END ==
PROVIDERS: PCP Family Medicine; Referring Provider Colon & Rectal Surgery; Visit Provider Colon & Rectal Surgery
DX: Z85.038 Personal history of other malignant neoplasm of large intestine (principal)
CPT/HCPCS: 36415; 80053; 82378; 85027

== ENCOUNTER → 2020-10-27 07:55 | Outpatient (CLI) | payer OTHER, SELFPAY ==
[2020-07-03 08:01] VITALS: BMI 36.6
[2020-10-27 08:49] LABS: Thyroid Stim Hormone (TSH) 0.95 uIU/mL (0.358-3.74)
== END ==
PROVIDERS: PCP Family Medicine; Referring Provider Internal Medicine Endocrinology, Diabetes & Metabolism; Visit Provider Internal Medicine Endocrinology, Diabetes & Metabolism
DX: E03.8 Other specified hypothyroidism (principal)
CPT/HCPCS: 36415; 84443

== ENCOUNTER → 2021-02-19 09:25 | Outpatient (CLI) | payer OTHER, SELFPAY ==
[2021-02-19 08:37] VITALS: BMI 36.6
[2021-02-19 12:08] LABS: Absolute Neutrophil Count 5.4 X10^3/uL (2.0-7.7); Basophil# 0.03 X10^3/uL; Basophil% 0.4 % (0-1); Eosinophil# 0.14 X10^3/uL; Eosinophils% 1.9 % (0-5); Hematocrit 40.6 % (37-47); Hemoglobin 13.5 g/dL (12.0-15.0); Lymphocyte % 17.5 % (19-41); Mean Corp Hgb Conc 33.3 g/dL (32-36); Mean Corpuscular Hgb 28.4 pg (27.0-32.0); Mean Corpuscular Volume 85.5 fL (81-99); Mean Platelet Vol. 9.2 fl (6.2-12.0); Monocyte# 0.49 X10^3/uL; Monocyte% 6.6 % (0-10); NRBC Flagged by Analyzer 0 % (0-5); Neutrophil # 5.39 X10^3/uL (2.7-7.7); Neutrophil % 72.8 % (47-70); Platelet Count 303 K/mm3 (150-450); RBC Distribution Width CV 13.2 % (11.6-14.6); RBC Distribution Width SD 40.9 fl (35.1-43.9); Red Blood Count 4.75 M/mm3 (4.2-5.4); White Blood Count 7.4 K/mm3 (4.4-11.0)
[2021-02-19 12:09] LABS: Erythrocyte Sedimentation Rate 23 mm/hr (0-30)
[2021-02-19 12:11] LABS: Vitamin B12 385 pg/mL (211-911); Vitamin D,25 Hydroxy 73.3 ng/mL
[2021-02-19 12:14] LABS: ALB/GLOB Ratio 0.9 RATIO (0.9-2.4); AST(SGOT) 16 U/L (15-37); Alanine Aminotransfer ALT/SGPT 18 U/L (13-56); Albumin, Serum 3.5 g/dL (3.2-5.0); Alkaline Phosphatase 106 U/L (45-117); Anion Gap 5 (5-15); BUN 8 mg/dL (7-18); BUN/Creat Ratio 10.3 RATIO (10-20); Calcium,Total 8.5 mg/dL (8.5-10.1); Chloride 107 mmol/L (98-107); Cholesterol 147 mg/dL (200); Creatinine, Serum 0.78 mg/dL (0.55-1.02); EST Glomerular Filtration Rate 84 mL/min (>60); Est Glom Filt Rate - Afr Amer 102 mL/min (>60); Globulin 3.7 g/dL (2.2-4.2); Glucose 83 mg/dL (74-106); High Density Lipoprotein 33 mg/dL; Potassium 3.9 mmol/L (3.5-5.1); Protein, Total 7.2 g/dL (6.4-8.2); Rheumatoid Factor < 10.0 IU/mL (<15); Sodium Level 136 mmol/L (136-145); Thyroid Stim Hormone (TSH) 0.84 uIU/mL (0.358-3.74); Triglycerides 114 mg/dL; Very Low Density Lipoprotein 23 mg/dL (5-40)
[2021-02-20 16:08] LABS: ANTINUCLEAR ANTIBODIES DIRECT Positive (Negative); Anti-Centromere B Ab <0.2 AI (0.0-0.9); Anti-Chromatin <0.2 AI (0.0-0.9); Anti-Jo <0.2 AI (0.0-0.9); Anti-Scleroderma-70 AB <0.2 AI (0.0-0.9); RNP Ab 0.2 AI (0.0-0.9); SJOGREN'S Anti-SS-A test < 0.2 AI (0.0-0.9); SJOGREN'S Anti-SS-B test < 0.2 AI (0.0-0.9); Smith Ab 0.5 AI (0.0-0.9)
[2021-02-21 07:26] LABS: Anti-dsDNA Ab 22 IU/mL (0-9)
[2021-02-21 07:31] LABS: CCP IgG Antibodies 12 units (0-19)
== END ==
PROVIDERS: PCP Internal Medicine; Referring Provider Physician Assistant; Visit Provider Physician Assistant
DX: E03.9 Hypothyroidism, unspecified (principal); M79.601 Pain in right arm; M79.602 Pain in left arm; M79.604 Pain in right leg; M79.605 Pain in left leg; R20.0 Anesthesia of skin; R20.2 Paresthesia of skin; Z98.890 Other specified postprocedural states
CPT/HCPCS: 36415; 80053; 80061; 82306; 82607; 84439; 84443; 85025; 85652; 86038; 86140; 86200; 86225; 86235; 86431

== ENCOUNTER → 2021-03-23 07:21 | Outpatient (CLI) | payer OTHER, SELFPAY ==
[2021-02-19 08:37] VITALS: BMI 36.6
[2021-03-23 08:10] LABS: Hematocrit 40.8 % (37-47); Hemoglobin 13.4 g/dL (12.0-15.0); Mean Corp Hgb Conc 32.8 g/dL (32-36); Mean Corpuscular Hgb 28.5 pg (27.0-32.0); Mean Corpuscular Volume 86.6 fL (81-99); Mean Platelet Vol. 9.4 fl (6.2-12.0); Platelet Count 272 K/mm3 (150-450); RBC Distribution Width CV 13.2 % (11.6-14.6); RBC Distribution Width SD 41.5 fl (35.1-43.9); Red Blood Count 4.71 M/mm3 (4.2-5.4); White Blood Count 6.9 K/mm3 (4.4-11.0)
[2021-03-23 08:47] LABS: ALB/GLOB Ratio 0.9 RATIO (0.9-2.4); AST(SGOT) 15 U/L (15-37); Alanine Aminotransfer ALT/SGPT 21 U/L (13-56); Albumin, Serum 3.4 g/dL (3.2-5.0); Alkaline Phosphatase 94 U/L (45-117); Anion Gap 5 (5-15); BUN 14 mg/dL (7-18); BUN/Creat Ratio 16.6 RATIO (10-20); Calcium,Total 8.5 mg/dL (8.5-10.1); Chloride 109 mmol/L (98-107); Creatinine, Serum 0.84 mg/dL (0.55-1.02); EST Glomerular Filtration Rate 77 mL/min (>60); Est Glom Filt Rate - Afr Amer 93 mL/min (>60); Globulin 3.6 g/dL (2.2-4.2); Glucose 90 mg/dL (74-106); Potassium 4.2 mmol/L (3.5-5.1); Sodium Level 139 mmol/L (136-145); Thyroid Stim Hormone (TSH) 1.39 uIU/mL (0.358-3.74)
[2021-03-23 09:07] LABS: Vitamin D,25 Hydroxy 74.1 ng/mL
[2021-03-24 10:11] LABS: Carcinoembryonic Antigen 1.4 ng/mL (0.0-4.7)
== END ==
PROVIDERS: PCP Internal Medicine; Referring Provider Colon & Rectal Surgery; Visit Provider Colon & Rectal Surgery
DX: E03.8 Other specified hypothyroidism (principal); E55.9 Vitamin D deficiency, unspecified; Z85.038 Personal history of other malignant neoplasm of large intestine
CPT/HCPCS: 36415; 80053; 82306; 82378; 84443; 85027

== ENCOUNTER 2021-03-23 16:00 | Outpatient (RCR) | payer OTHER, SELFPAY ==
[2020-07-03 08:01] VITALS: BMI 36.6
--- NOTE | 2021-02-16 13:18 | HP.PTEVAL ---
Patient's Visit Information IRA TORO is a 50 year old F referred to Physical Therapy by Dr. Rohit Todd MD with a diagnosis of D and O of R shoulder, R shoulder arthroscopy. Date of Evaluation: 02/12/21 Physical Therapist: Juan Ramos DPT - Visit Plan Frequency: 3x /Week Duration: 6 Weeks Plan: Start with PROM of R shoulder with joint mobilizations. Progress to AROM as tolerated. May add in talha progressing to wand exercises once able. - Subjective Pt. is here today for her evaluation with diagnosis of D and O of R shoulder. Pt. reports having a R RTC repair and arthroscopy. Pt. reports originally hurting her shoulder a few years ago. She reports this time they had to remove some hardware that had been loosening. Pt. arrives today without her sling and reports physician only wanted her in it for a day or so. She is back to work, mostly desk work. She reports overall increased pain in her shoulder, but is also having increased B hand pain/swelling. This started prior to surgery, and actually was better during her never block, but came back once the block wore off. She has been doing light exercises at home. She denies N/T in either UE. She denies having RA. Pt. is hopeful to get back to work and all recreational activities without limitations. - Pain R shoulder Pain Intensity (Out of 10): 6 Pain Intensity Range: 3, 9 Comment: throbbing - Objective POSTURE: Pt. has R arm in guarded posture at her side. PALPATION: Pt. has tenderness her R shoulder in UT and sub acromial space. NEURO: Normal sensation of BUEs. normal DTR of BUEs as well. ROM: L shoulder- AROM: full motion no issues.. R shoulder: PROM: flexion 110deg, abd 90deg, ER at side 20deg. IR not measured. MMT: LUE: 5/5 throughout. RUE: did not test due to recent surgery - Goals Goal 1:: LTG: Pt. to be I with HEP. Goal Time Frame: 4-6 Weeks Goal 2:: STG: Pt. to sleep throughout the night without increase in symptoms. Goal Time Frame: 2 Weeks Goal 3:: STG: PROM to full including ER, IR, flexion, abduction without increase in symptoms. Goal Time Frame: 2-4 Weeks Goal 4:: LTG: Pt. to have full AROM of R shoulder without increase in symptoms. Goal Time Frame: 2-4 Weeks Goal 5:: LTG: Pt. to have increased RUE strength to at least 4+/5 throughout RUE. Goal Time Frame: 4-6 Weeks Goal 6:: LTG: Pt. to complete all work and recreational activities without increase in symptoms. Goal Time Frame: 6-8 Weeks - Rehabilitation Potential Physical Therapy Diagnosis: Pt. has signs and symptoms consistent with R shoulder arthroscopy. Pt. reports having a RTC repair as well. She has signs marked hypomobility and weakness and would benefit from PT to initially increase ROM progressing to strengthening as tolerated. Rehabilitation Potential: Good - Anticipated Interventions Patient/Client Instruction: Educate patient on: Condition, Plan of Care, Risk Factors, Benefits of Fitness Program For the Purpose of:: To improve safety, To improve health and function, To foster healthy habits, To facilitate caregiver knowledge, To improve self management, To prevent re-injury Therapeutic Exercise to Include: Strength training, Power training, Postural training, Flexibilty training, Passive ROM, Active ROM, Scapular Strength/Stabilization For the Purpose of:: To decrease pain, To decrease swelling/inflammation, To increase ROM, To improve nutrient delivery to tissue, To increase oxygenation perfusion, To increase tolerance to activity/condition/position, To improve performance and independence with ADL's, To decrease level of supervision to perform tasks, To improve health of tissue, To decrease soft tissue restriction, To increase flexibility/ROM Manual Therapy Techniques to Include: Mobilization, Passive ROM, Soft tissue mobilization For the Purpose of:: To decrease pain, To decrease swelling/inflammation, To increase ROM, To improve nutrient delivery to tissue Cryotherapy (ice pack, ice massage): Yes For the Purpose of:: To decrease pain, To decrease swelling/inflammation, To increase ROM Thank you for the opportunity to evaluate your patient. For Medicare and Medicare HMO plans, please review the plan of care and approve it. It will need to be FAXED BACK to us at [phone] for Medicare purposes. For Medicare only, by signing this I certify the plan of care. Please let me know if there are questions or concerns regarding this plan of care. Physician Signature: Date:
--- NOTE | 2021-08-04 12:49 | HP.PT.NRP ---
IRA TORO was seen in my office for initial evaluation on 02/12/21. The following Plan of Care was established for this patient: Initial Frequency: 3x /Week Initial Duration: 6 Weeks Patient/Client Instruction: Educate patient on: Condition, Plan of Care, Risk Factors, Benefits of Fitness Program For the Purpose of:: To improve safety, To improve health and function, To foster healthy habits, To facilitate caregiver knowledge, To improve self management, To prevent re-injury Therapeutic Exercise to Include: Strength training, Power training, Postural training, Flexibilty training, Passive ROM, Active ROM, Scapular Strength/Stabilization For the Purpose of:: To decrease pain, To decrease swelling/inflammation, To increase ROM, To improve nutrient delivery to tissue, To increase oxygenation perfusion, To increase tolerance to activity/condition/position, To improve performance and independence with ADL's, To decrease level of supervision to perform tasks, To improve health of tissue, To decrease soft tissue restriction, To increase flexibility/ROM Manual Therapy Techniques to Include: Mobilization, Passive ROM, Soft tissue mobilization For the Purpose of:: To decrease pain, To decrease swelling/inflammation, To increase ROM, To improve nutrient delivery to tissue Cryotherapy (ice pack, ice massage): Yes For the Purpose of:: To decrease pain, To decrease swelling/inflammation, To increase ROM This patient was last seen in our office 05/13/21. Pertinent comments regarding their Physical therapy will appear below: Pt. was seen in PT for her R RTC repair. At our last visit, patient following up with physician and was to return after. Pt. was not been seen in several months and will be DC from PT at this point in time. At this point I will be discontinuing this patient from physical therapy. I would be happy to see this patient again in the future if found appropriate by the physician. Thank you! Juan Ramos, ROSANGELAT
== END 2021-03-23 19:00 | disposition home or self-care (01) ==
LOC: PT 16:00
PROVIDERS: PCP Family Medicine; Referring Provider Orthopaedic Surgery; Visit Provider Orthopaedic Surgery
DX: M19.011 Primary osteoarthritis, right shoulder (principal); M25.711 Osteophyte, right shoulder; M75.111 Incomplete rotator cuff tear or rupture of right shoulder, not specified as traumatic; M75.41 Impingement syndrome of right shoulder
CPT/HCPCS: 97014; 97110; 97161; G0283

== ENCOUNTER → 2021-09-09 11:46 | Outpatient (CLI) | payer OTHER, SELFPAY ==
[2021-09-09 15:10] LABS: Hematocrit 39.1 % (37-47); Hemoglobin 13.1 g/dL (12.0-15.0); Mean Corp Hgb Conc 33.5 g/dL (32-36); Mean Corpuscular Volume 86.7 fL (81-99); Mean Platelet Vol. 9.6 fl (6.2-12.0); Platelet Count 311 K/mm3 (150-450); RBC Distribution Width CV 12.5 % (11.6-14.6); RBC Distribution Width SD 39.6 fl (35.1-43.9); Red Blood Count 4.51 M/mm3 (4.2-5.4); White Blood Count 6.7 K/mm3 (4.4-11.0)
[2021-09-09 15:33] LABS: ALB/GLOB Ratio 0.9 RATIO (0.9-2.4); AST(SGOT) 13 U/L (15-37); Alanine Aminotransfer ALT/SGPT 22 U/L (13-56); Albumin, Serum 3.4 g/dL (3.2-5.0); Alkaline Phosphatase 99 U/L (45-117); Anion Gap 3 (5-15); BUN 12 mg/dL (7-18); BUN/Creat Ratio 15.6 RATIO (10-20); Calcium,Total 8.6 mg/dL (8.5-10.1); Chloride 104 mmol/L (98-107); Creatinine, Serum 0.77 mg/dL (0.55-1.02); EST Glomerular Filtration Rate 85 mL/min (>60); Est Glom Filt Rate - Afr Amer 103 mL/min (>60); Globulin 3.9 g/dL (2.2-4.2); Glucose 97 mg/dL (74-106); Potassium 3.7 mmol/L (3.5-5.1); Protein, Total 7.3 g/dL (6.4-8.2); Sodium Level 137 mmol/L (136-145)
[2021-09-11 09:48] LABS: Carcinoembryonic Antigen 0.6 ng/mL (0.0-4.7)
== END ==
PROVIDERS: PCP Internal Medicine
DX: Z85.038 Personal history of other malignant neoplasm of large intestine (principal)
CPT/HCPCS: 36415; 80053; 82378; 85027

== ENCOUNTER 2021-09-28 08:08 | Outpatient (CLI) | payer OTHER, SELFPAY ==
[2021-09-28 12:36] LABS: T4 Free Direct 1.47 ng/dL (0.76-1.46); Thyroid Stim Hormone (TSH) 0.01 uIU/mL (0.358-3.74)
[2021-09-29 08:33] LABS: Thyroid Peroxidase AB 10 IU/mL (0-34)
== END 2021-09-28 23:59 | disposition home or self-care (01) ==
LOC: BIMLAB 08:09
PROVIDERS: PCP Internal Medicine; Referring Provider Internal Medicine Endocrinology, Diabetes & Metabolism; Visit Provider Internal Medicine Endocrinology, Diabetes & Metabolism
DX: E03.9 Hypothyroidism, unspecified (principal)
CPT/HCPCS: 36415; 84439; 84443; 86376

== ENCOUNTER 2021-10-28 07:36 | Outpatient (CLI) | payer OTHER, SELFPAY ==
--- NOTE | 2021-10-28 07:58 | RAD_ITS ---
STUDY: X-RAY CHEST REASON FOR EXAM: Female, 51 years old. Preop internal medicine TECHNIQUE: PA and lateral views of the chest. COMPARISON: None. FINDINGS: The lungs are clear and expanded. There is no demonstrated pleural abnormality. Normal size heart. Normal mediastinum and olegario. Normal visualized pulmonary arteries. Normal visualized aortic arch and descending thoracic aorta. Normal visualized thoracic spine. Normal visualized ribs, clavicles, and shoulders. There is no demonstrated abnormality of the visualized soft tissue structures of the upper abdomen. RAD/Chest PA and Lateral IMPRESSION: Normal x-ray examination of the chest. Electronically Signed: Rupesh Harper MD at 12:40 EST ,
[2021-10-28 08:02] LABS: Absolute Lymphocyte Count 1.59 X10^3/uL (0.83-4.51); Absolute Neutrophil Count 5.1 X10^3/uL (2.0-7.7); Basophil# 0.02 X10^3/uL; Basophil% 0.3 % (0-1); Eosinophil# 0.17 X10^3/uL; Eosinophils% 2.3 % (0-5); Hematocrit 40.1 % (37-47); Hemoglobin 13.9 g/dL (12.0-15.0); Lymphocyte # 1.59 X10^3/ul (0.83-4.51); Lymphocyte % 21.1 % (19-41); Mean Corp Hgb Conc 34.7 g/dL (32-36); Mean Corpuscular Hgb 29.4 pg (27.0-32.0); Mean Platelet Vol. 9.1 fl (6.2-12.0); Monocyte# 0.64 X10^3/uL; Monocyte% 8.5 % (0-10); NRBC Flagged by Analyzer 0 % (0-5); Neutrophil % 67.4 % (47-70); Platelet Count 294 K/mm3 (150-450); RBC Distribution Width CV 12.2 % (11.6-14.6); RBC Distribution Width SD 37.4 fl (35.1-43.9); Red Blood Count 4.72 M/mm3 (4.2-5.4); White Blood Count 7.6 K/mm3 (4.4-11.0)
[2021-10-28 08:34] LABS: Hemoglobin A1c 5.2 % (3.8-5.6); Partial Thromboplast Time 41.3 Seconds (24.1-36.2)
[2021-10-28 08:36] LABS: Anion Gap 8 (5-15); BUN 13 mg/dL (7-18); BUN/Creat Ratio 14.6 RATIO (10-20); Calcium,Total 8.6 mg/dL (8.5-10.1); Chloride 106 mmol/L (98-107); Creatinine, Serum 0.89 mg/dL (0.55-1.02); EST Glomerular Filtration Rate 72 mL/min (>60); Est Glom Filt Rate - Afr Amer 87 mL/min (>60); Glucose 119 mg/dL (74-106); Potassium 3.8 mmol/L (3.5-5.1); Sodium Level 139 mmol/L (136-145)
[2021-10-28 08:39] LABS: International Normalized Ratio 1.1; Prothrombin Time (Protime)PT. 13.5 SECONDS (11.7-14.9)
--- NOTE | 2021-10-28 09:50 | EKG12_ITS ---
Test Reason : PREOP Blood Pressure : / mmHG Vent. Rate : 069 BPM Atrial Rate : 069 BPM P-R Int : 114 ms QRS Dur : 078 ms QT Int : 382 ms P-R-T Axes : 067 032 045 degrees QTc Int : 409 ms Normal sinus rhythm Normal ECG Confirmed by NEEL JOLLY, ORAL ([id number]), science editor MARCEL CRAWFORD ([id number]) on 10/28/2021 1:35:30 PM Referred By: Karis Pickens Confirmed By:ORAL SHAIKH MD
== END 2021-10-28 23:59 | disposition home or self-care (01) ==
PROVIDERS: PCP Internal Medicine; Referring Provider Internal Medicine; Visit Provider Internal Medicine
DX: Z01.818 Encounter for other preprocedural examination (principal)
CPT/HCPCS: 36415; 71046; 80048; 83036; 85025; 85610; 85730; 93005

== ENCOUNTER → 2022-01-05 | Outpatient (CLI) | payer OTHER, SELFPAY ==
[2022-01-05 15:38] LABS: Thyroid Stim Hormone (TSH) 0.06 uIU/mL (0.358-3.74)
== END | disposition home or self-care (01) ==
LOC: BIMLAB 13:10
PROVIDERS: PCP Internal Medicine; Referring Provider Internal Medicine Endocrinology, Diabetes & Metabolism; Visit Provider Internal Medicine Endocrinology, Diabetes & Metabolism
DX: E89.0 Postprocedural hypothyroidism (principal)
CPT/HCPCS: 36415; 84439; 84443

== ENCOUNTER 2022-02-05 09:00 | Outpatient (RCR) | payer OTHER, SELFPAY ==
--- NOTE | 2021-11-24 14:11 | HP.PTEVAL ---
Patient's Visit Information IRA TORO is a 51 year old F referred to Physical Therapy by Dr. Issac Pizano DO with a diagnosis of R TKA. Date of Evaluation: 11/24/21 Physical Therapist: Duncan Hayes, PT, ATC - Visit Plan Frequency: 2-3x /Week Duration: 6 Weeks Plan: R knee PROM/mobs, stretching and strengthening, balance and proprio, core strengthening, nustep, and HEP - Subjective DOS: 11/23/21. Pt had a R TKA performed at that time. Pt reports she had pain for approximately 19 years prior to having this surgery. Pt notes she tore her meniscus and had surgery at that time and was told she would need a replacement at some time. Pt notes she is glad to have had the surgery since she doesn't have the joint pain she once had. Pt does note she has a lot of pain where the tourniquet was and stiffness surrounding the joint. Pt reports she has difficulty with car transfers at this time as getting into the truck is very difficult. Pt reports sleep difficulty at this time secondary to pain. No tingling or numbness in R LE at this time. 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 However, she has 10 stairs to get to her office. Pt is limited with all IADL's at this time. - Pain R knee Pain Intensity (Out of 10): 6 Pain Intensity Range: 6 - Objective Tu.8. Girth at joint line: R knee 48 cm, L knee 43 cm. ROM: R knee 0-10-57; L knee 0-120. MMT: R knee flex= 6, ext= 6 #F; L knee flex= 32, ext= 27 #F. Neuro: B LE sensation is WNL to light touch. Incision: Still covered with bandage. No signs of infection present at this time. - Balance/Special Test Scores Lower Extremity Functional Score: 5 - Goals Goal 1:: Decrease R knee pain x 50% to aid with sleep at night Goal Time Frame: 4-6 Weeks Goal 2:: Increase R knee ROM x 40 degrees to aid with restoring a normalized gait pattern Goal Time Frame: 4-6 Weeks Goal 3:: Increase R knee strength x 10 #F to aid with stair negotiation Goal Time Frame: 4-6 Weeks Goal 4:: I with HEP Goal Time Frame: 4-6 Weeks - Rehabilitation Potential Physical Therapy Diagnosis: Pt has R knee pain, weakness, and limited ROM secondary to R TKA Rehabilitation Potential: Good - Anticipated Interventions Patient/Client Instruction: Educate patient on: Condition, Plan of Care For the Purpose of:: To improve self management Therapeutic Exercise to Include: Strength training, Endurance training, Balance training, Gait and locomotor training, Passive ROM, Active ROM, Dynamic Lumbar Stabilization For the Purpose of:: To decrease pain, To increase ROM, To improve ability to perform ADL's Cryotherapy (ice pack, ice massage): Yes For the Purpose of:: To decrease pain Thank you for the opportunity to evaluate your patient. For Medicare and Medicare HMO plans, please review the plan of care and approve it. It will need to be FAXED BACK to us at [phone] for Medicare purposes. For Medicare only, by signing this I certify the plan of care. Please let me know if there are questions or concerns regarding this plan of care. Physician Signature: Date:
--- NOTE | 2022-01-01 08:16 | HP.PTREVAL ---
Dr. Issac Pizano, DO, It has been my pleasure to treat IRA TORO over the last 17 visits for R TKA - 11/23/21. Please see the progress note below for an update on the physical therapy plan of care! Subjective: Pt reports she notices improvements, still feels weak and limited. Pt reports stair negotiation is still difficult Objective/Function: R knee pain is 4/10 this date. R knee MMT: flex= 24, ext= 38 #F. R knee ROM: flex= 115, ext= -10. Pt is progressing well towards Rx goals Plan Plan: Progress strengthening and ROM ex's as tolerated. Balance/Gait/Functional tests - Balance/Special Test Scores Lower Extremity Functional Score: 28 Goals Goal 1:: Decrease R knee pain x 50% to aid with sleep at night Goal Time Frame: 4-6 Weeks Goal Progress: Progressing Goal 2:: Increase R knee ROM x 40 degrees to aid with restoring a normalized gait pattern Goal Time Frame: 4-6 Weeks Goal Progress: Progressing Goal 3:: Increase R knee strength x 10 #F to aid with stair negotiation Goal Time Frame: 4-6 Weeks Goal Progress: Progressing Goal 4:: I with HEP Goal Time Frame: 4-6 Weeks Goal Progress: Progressing Anticipated Interventions Patient/Client Instruction: Educate patient on: Condition, Plan of Care For the Purpose of:: To improve self management Therapeutic Exercise to Include: Strength training, Endurance training, Balance training, Gait and locomotor training, Passive ROM, Active ROM, Dynamic Lumbar Stabilization For the Purpose of:: To decrease pain, To increase ROM, To improve ability to perform ADL's Cryotherapy (ice pack, ice massage): Yes For the Purpose of:: To decrease pain Please do not hesitate to contact me at [phone] by phone or if you have questions or concerns regarding this new plan of care! Sincerely, Duncan Hayes, PT, ATC
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
== END 2022-02-05 19:00 | disposition home or self-care (01) ==
LOC: PT 09:00
PROVIDERS: PCP Internal Medicine; Referring Provider Orthopaedic Surgery; Visit Provider Orthopaedic Surgery
DX: Z47.1 Aftercare following joint replacement surgery; Z96.651 Presence of right artificial knee joint
CPT/HCPCS: 97110; 97140; 97161; 97164

== ENCOUNTER → 2022-03-10 | Outpatient (CLI) | payer OTHER, SELFPAY ==
[2022-03-10 12:12] LABS: Hemoglobin 13.2 g/dL (12.0-15.0); Mean Corpuscular Hgb 28.3 pg (27.0-32.0); Mean Corpuscular Volume 85.8 fL (81-99); Mean Platelet Vol. 9.4 fl (6.2-12.0); Platelet Count 292 K/mm3 (150-450); RBC Distribution Width CV 12.6 % (11.6-14.6); RBC Distribution Width SD 39.3 fl (35.1-43.9); Red Blood Count 4.66 M/mm3 (4.2-5.4); White Blood Count 9.2 K/mm3 (4.4-11.0)
[2022-03-10 12:44] LABS: ALB/GLOB Ratio 0.9 RATIO (0.9-2.4); AST(SGOT) 28 U/L (15-37); Alanine Aminotransfer ALT/SGPT 34 U/L (13-56); Albumin, Serum 3.4 g/dL (3.2-5.0); Alkaline Phosphatase 108 U/L (45-117); Anion Gap 5 (5-15); BUN 10 mg/dL (7-18); BUN/Creat Ratio 11.7 RATIO (10-20); Calcium,Total 8.9 mg/dL (8.5-10.1); Chloride 107 mmol/L (98-107); Creatinine, Serum 0.86 mg/dL (0.55-1.02); EST Glomerular Filtration Rate 75 mL/min (>60); Est Glom Filt Rate - Afr Amer 91 mL/min (>60); Globulin 3.8 g/dL (2.2-4.2); Glucose 90 mg/dL (74-106); Potassium 3.4 mmol/L (3.5-5.1); Protein, Total 7.2 g/dL (6.4-8.2); Sodium Level 138 mmol/L (136-145)
[2022-03-10 12:55] LABS: T4 Free Direct 1.16 ng/dL (0.76-1.46); Thyroid Stim Hormone (TSH) 0.11 uIU/mL (0.358-3.74)
[2022-03-11 10:56] LABS: Carcinoembryonic Antigen 1.2 ng/mL (0.0-4.7)
== END | disposition home or self-care (01) ==
PROVIDERS: Surgery; PCP Internal Medicine; Referring Provider Internal Medicine Endocrinology, Diabetes & Metabolism; Visit Provider Internal Medicine Endocrinology, Diabetes & Metabolism
DX: E89.0 Postprocedural hypothyroidism (principal); Z85.038 Personal history of other malignant neoplasm of large intestine
CPT/HCPCS: 36415; 80053; 82378; 84439; 84443; 85027

== ENCOUNTER → 2022-06-09 | Outpatient (CLI) | payer OTHER, SELFPAY ==
[2022-06-09 17:54] LABS: T4 Free Direct 1.01 ng/dL (0.76-1.46); Thyroid Stim Hormone (TSH) 0.53 uIU/mL (0.358-3.74)
== END | disposition home or self-care (01) ==
PROVIDERS: PCP Internal Medicine; Visit Provider Internal Medicine
DX: E03.9 Hypothyroidism, unspecified (principal)
CPT/HCPCS: 36415; 84439; 84443

== ENCOUNTER → 2022-07-02 | Outpatient (CLI) | payer OTHER, SELFPAY ==
--- NOTE | 2022-07-02 13:29 | US_ITS ---
STUDY: THYROID ULTRASOUND REASON FOR EXAM: Female, 51 years old. History thyroid nodules, history left lobectomy TECHNIQUE: Ultrasound evaluation of the thyroid was performed with real-time and static morris-scale imaging. COMPARISON: None. FINDINGS: RIGHT LOBE: The right lobe of the thyroid gland measures 5.3 x 1.4 x 1.5 cm. There is a homogeneous echotexture. There are no demonstrated solid, cystic or complex lesions. LEFT LOBE: The left lobe of the thyroid gland measures 1.6 x .5 x 0.6 cm. There is a homogeneous echotexture. There are no demonstrated solid, cystic or complex lesions. ISTHMUS: The isthmus measures 2 mm . The regional lymph nodes are normal. US/Thyroid IMPRESSION: There appears to be a very small nodule of thyroid tissue within the surgical bed status post thyroidectomy which may represent residual thyroid tissue or recurrent growth.. CT or MRI would be helpful for further assessment if clinically indicated The right lobe is within normal limits. Electronically Signed: Issac Rivera MD at 17:19 EST ,
== END | disposition home or self-care (01) ==
LOC: OPUS 13:28
PROVIDERS: PCP Internal Medicine; Visit Provider Internal Medicine
DX: E89.0 Postprocedural hypothyroidism (principal)
CPT/HCPCS: 76536

== ENCOUNTER → 2022-09-09 | Outpatient (CLI) | payer OTHER, SELFPAY ==
[2022-09-09 08:40] LABS: Hemoglobin 13.6 g/dL (12.0-15.0); Mean Corp Hgb Conc 33.2 g/dL (32-36); Mean Corpuscular Hgb 28.5 pg (27.0-32.0); Mean Corpuscular Volume 85.8 fL (81-99); Platelet Count 295 K/mm3 (150-450); RBC Distribution Width CV 12.8 % (11.6-14.6); RBC Distribution Width SD 39.7 fl (35.1-43.9); Red Blood Count 4.78 M/mm3 (4.2-5.4); White Blood Count 7.3 K/mm3 (4.4-11.0)
[2022-09-09 09:23] LABS: ALB/GLOB Ratio 0.9 RATIO (0.9-2.4); AST(SGOT) 12 U/L (15-37); Alanine Aminotransfer ALT/SGPT 22 U/L (13-56); Albumin, Serum 3.3 g/dL (3.2-5.0); Alkaline Phosphatase 105 U/L (45-117); Anion Gap 4 (5-15); BUN 12 mg/dL (7-18); BUN/Creat Ratio 13.8 RATIO (10-20); Calcium,Total 8.4 mg/dL (8.5-10.1); Chloride 107 mmol/L (98-107); Creatinine, Serum 0.87 mg/dL (0.55-1.02); EST Glomerular Filtration Rate 74 mL/min (>60); Est Glom Filt Rate - Afr Amer 89 mL/min (>60); Globulin 3.7 g/dL (2.2-4.2); Glucose 102 mg/dL (74-106); Potassium 3.8 mmol/L (3.5-5.1); Sodium Level 138 mmol/L (136-145)
[2022-09-10 13:07] LABS: Carcinoembryonic Antigen 1.3 ng/mL (0.0-4.7)
== END | disposition home or self-care (01) ==
PROVIDERS: PCP Internal Medicine
DX: Z85.038 Personal history of other malignant neoplasm of large intestine (principal)
CPT/HCPCS: 36415; 80053; 82378; 85027

== ENCOUNTER → 2023-03-16 | Outpatient (CLI) | payer OTHER, SELFPAY ==
[2023-03-16 08:37] LABS: Hematocrit 40.5 % (37-47); Hemoglobin 13.6 g/dL (12.0-15.0); Mean Corp Hgb Conc 33.6 g/dL (32-36); Mean Corpuscular Hgb 29.3 pg (27.0-32.0); Mean Corpuscular Volume 87.3 fL (81-99); Mean Platelet Vol. 9.3 fl (6.2-12.0); Platelet Count 291 K/mm3 (150-450); RBC Distribution Width CV 13.2 % (11.6-14.6); RBC Distribution Width SD 42.1 fl (35.1-43.9); Red Blood Count 4.64 M/mm3 (4.2-5.4); White Blood Count 8.4 K/mm3 (4.4-11.0)
[2023-03-16 09:11] LABS: AST(SGOT) 10 U/L (15-37); Alanine Aminotransfer ALT/SGPT 20 U/L (13-56); Albumin, Serum 3.5 g/dL (3.2-5.0); Alkaline Phosphatase 112 U/L (45-117); Anion Gap 3 (5-15); BUN 12 mg/dL (7-18); BUN/Creat Ratio 11.9 RATIO (10-20); Calcium,Total 8.6 mg/dL (8.5-10.1); Chloride 108 mmol/L (98-107); Creatinine, Serum 1.01 mg/dL (0.55-1.02); EST Glomerular Filtration Rate 62 mL/min (>60); Est Glom Filt Rate - Afr Amer 74 mL/min (>60); Globulin 3.4 g/dL (2.2-4.2); Glucose 76 mg/dL (74-106); Potassium 4.1 mmol/L (3.5-5.1); Protein, Total 6.9 g/dL (6.4-8.2); Sodium Level 140 mmol/L (136-145)
[2023-03-17 05:04] LABS: Carcinoembryonic Antigen 1.2 ng/mL (0.0-4.7)
== END | disposition home or self-care (01) ==
PROVIDERS: PCP Internal Medicine
DX: Z85.038 Personal history of other malignant neoplasm of large intestine (principal)
CPT/HCPCS: 36415; 80053; 82378; 85027

== ENCOUNTER → 2023-07-05 | Outpatient (CLI) | payer OTHER, SELFPAY ==
[2023-07-05 08:41] LABS: Absolute Lymphocyte Count 1.77 X10^3/uL (0.83-4.51); Absolute Neutrophil Count 5.6 X10^3/uL (2.0-7.7); Basophil# 0.03 X10^3/uL; Basophil% 0.4 % (0-1); Eosinophil# 0.18 X10^3/uL; Eosinophils% 2.2 % (0-5); Hematocrit 41.6 % (37-47); Hemoglobin 14.1 g/dL (12.0-15.0); Lymphocyte # 1.77 X10^3/ul (0.83-4.51); Lymphocyte % 21.4 % (19-41); Mean Corp Hgb Conc 33.9 g/dL (32-36); Mean Corpuscular Hgb 29.7 pg (27.0-32.0); Mean Corpuscular Volume 87.6 fL (81-99); Mean Platelet Vol. 9.4 fl (6.2-12.0); Monocyte# 0.64 X10^3/uL; Monocyte% 7.7 % (0-10); NRBC Flagged by Analyzer 0 % (0-5); Neutrophil # 5.61 X10^3/uL (2.7-7.7); Neutrophil % 67.8 % (47-70); Platelet Count 312 K/mm3 (150-450); RBC Distribution Width CV 12.8 % (11.6-14.6); RBC Distribution Width SD 40.6 fl (35.1-43.9); Red Blood Count 4.75 M/mm3 (4.2-5.4); White Blood Count 8.3 K/mm3 (4.4-11.0)
[2023-07-05 09:09] LABS: Insulin 9.6 mU/L (2.6-37.6); Vitamin B12 400 pg/mL (211-911); Vitamin D,25 Hydroxy 71.3 ng/mL
[2023-07-05 09:21] LABS: AST(SGOT) 13 U/L (15-37); Alanine Aminotransfer ALT/SGPT 19 U/L (13-56); Albumin, Serum 3.5 g/dL (3.2-5.0); Alkaline Phosphatase 112 U/L (45-117); Anion Gap 6 (5-15); BUN 12 mg/dL (7-18); BUN/Creat Ratio 14.2 RATIO (10-20); Calcium,Total 8.8 mg/dL (8.5-10.1); Chloride 107 mmol/L (98-107); Cholesterol 164 mg/dL (200); Creatinine, Serum 0.84 mg/dL (0.55-1.02); EST Glomerular Filtration Rate 76 mL/min (>60); Est Glom Filt Rate - Afr Amer 92 mL/min (>60); Follicle Stimulating Hormone 17.8 mIU/mL; Free T3 2.3 pg/mL (2.18-3.98); Globulin 3.6 g/dL (2.2-4.2); Glucose 101 mg/dL (74-106); High Density Lipoprotein 42 mg/dL; Luteinizing Hormone 24.6 mIU/mL; Magnesium 2.1 mg/dL (1.6-2.6); Potassium 3.7 mmol/L (3.5-5.1); Protein, Total 7.1 g/dL (6.4-8.2); Sodium Level 139 mmol/L (136-145); Thyroid Stim Hormone (TSH) 0.37 uIU/mL (0.358-3.74); Triglycerides 99 mg/dL; Very Low Density Lipoprotein 20 mg/dL (5-40)
== END | disposition home or self-care (01) ==
LOC: LAB 07:52
PROVIDERS: PCP Internal Medicine; Visit Provider Internal Medicine
DX: Z00.00 Encounter for general adult medical examination without abnormal findings (principal); E66.9 Obesity, unspecified; E03.9 Hypothyroidism, unspecified; Z85.038 Personal history of other malignant neoplasm of large intestine; Z83.3 Family history of diabetes mellitus; Z13.220 Encounter for screening for lipoid disorders; E55.9 Vitamin D deficiency, unspecified; E53.8 Deficiency of other specified B group vitamins
CPT/HCPCS: 36415; 80053; 80061; 82306; 82607; 83001; 83002; 83525; 83735; 84439; 84443; 84481; 85025

== ENCOUNTER → 2023-09-22 | Outpatient (CLI) | payer OTHER, SELFPAY ==
[2023-09-22 08:56] LABS: Hematocrit 41.9 % (37-47); Hemoglobin 13.9 g/dL (12.0-15.0); Mean Corp Hgb Conc 33.2 g/dL (32-36); Mean Corpuscular Hgb 28.8 pg (27.0-32.0); Mean Corpuscular Volume 86.7 fL (81-99); Mean Platelet Vol. 9.4 fl (6.2-12.0); Platelet Count 304 K/mm3 (150-450); RBC Distribution Width CV 12.6 % (11.6-14.6); RBC Distribution Width SD 39.8 fl (35.1-43.9); Red Blood Count 4.83 M/mm3 (4.2-5.4); White Blood Count 7.2 K/mm3 (4.4-11.0)
[2023-09-22 09:35] LABS: AST(SGOT) 16 U/L (15-37); Alanine Aminotransfer ALT/SGPT 21 U/L (13-56); Albumin, Serum 3.7 g/dL (3.2-5.0); Alkaline Phosphatase 111 U/L (45-117); Anion Gap 4 (5-15); BUN 8 mg/dL (7-18); Calcium,Total 9.1 mg/dL (8.5-10.1); Chloride 107 mmol/L (98-107); EST Glomerular Filtration Rate 62 mL/min (>60); Est Glom Filt Rate - Afr Amer 75 mL/min (>60); Globulin 3.7 g/dL (2.2-4.2); Glucose 122 mg/dL (74-106); Potassium 3.8 mmol/L (3.5-5.1); Protein, Total 7.4 g/dL (6.4-8.2); Sodium Level 138 mmol/L (136-145)
[2023-09-23 04:07] LABS: Carcinoembryonic Antigen 1.1 ng/mL (0.0-4.7)
== END | disposition home or self-care (01) ==
PROVIDERS: PCP Internal Medicine; Referring Provider Surgery; Visit Provider Surgery
DX: Z85.038 Personal history of other malignant neoplasm of large intestine (principal)
CPT/HCPCS: 36415; 80053; 82378; 85027

== ENCOUNTER → 2024-03-19 | Outpatient (CLI) | payer OTHER, SELFPAY ==
[2024-03-19 13:35] LABS: Hematocrit 40.6 % (37-47); Hemoglobin 13.8 g/dL (12.0-15.0); Mean Corpuscular Hgb 29.1 pg (27.0-32.0); Mean Corpuscular Volume 85.5 fL (81-99); Mean Platelet Vol. 8.9 fl (6.2-12.0); Platelet Count 294 K/mm3 (150-450); RBC Distribution Width CV 13.1 % (11.6-14.6); RBC Distribution Width SD 40.4 fl (35.1-43.9); Red Blood Count 4.75 M/mm3 (4.2-5.4); White Blood Count 10.7 K/mm3 (4.4-11.0)
[2024-03-19 14:11] LABS: ALB/GLOB Ratio 0.9 RATIO (0.9-2.4); AST(SGOT) 16 U/L (15-37); Alanine Aminotransfer ALT/SGPT 18 U/L (13-56); Albumin, Serum 3.5 g/dL (3.2-5.0); Alkaline Phosphatase 109 U/L (45-117); Anion Gap 3 (5-15); BUN 8 mg/dL (7-18); BUN/Creat Ratio 8.3 RATIO (10-20); Calcium,Total 8.9 mg/dL (8.5-10.1); Chloride 107 mmol/L (98-107); Creatinine, Serum 0.96 mg/dL (0.55-1.02); EST Glomerular Filtration Rate 65 mL/min (>60); Est Glom Filt Rate - Afr Amer 79 mL/min (>60); Globulin 3.9 g/dL (2.2-4.2); Glucose 88 mg/dL (74-106); Protein, Total 7.4 g/dL (6.4-8.2); Sodium Level 139 mmol/L (136-145)
[2024-03-21 04:07] LABS: Carcinoembryonic Antigen 1.1 ng/mL (0.0-4.7)
== END | disposition home or self-care (01) ==
LOC: LAB 13:10
PROVIDERS: PCP Internal Medicine; Referring Provider Surgery; Visit Provider Surgery
DX: Z08 Encounter for follow-up examination after completed treatment for malignant neoplasm (principal); Z85.038 Personal history of other malignant neoplasm of large intestine
CPT/HCPCS: 36415; 80053; 82378; 85027

== ENCOUNTER → 2024-08-08 | Outpatient (CLI) | payer OTHER, SELFPAY ==
[2024-08-08 12:19] LABS: Hemoglobin 14.2 g/dL (12.0-15.0); Mean Corpuscular Hgb 28.5 pg (27.0-32.0); Mean Corpuscular Volume 86.3 fL (81-99); Mean Platelet Vol. 9.2 fl (6.2-12.0); Platelet Count 333 K/mm3 (150-450); RBC Distribution Width CV 12.8 % (11.6-14.6); RBC Distribution Width SD 39.8 fl (35.1-43.9); Red Blood Count 4.98 M/mm3 (4.2-5.4); White Blood Count 9.2 K/mm3 (4.4-11.0)
[2024-08-08 12:53] LABS: ALB/GLOB Ratio 0.9 RATIO (0.9-2.4); AST(SGOT) 11 U/L (15-37); Alanine Aminotransfer ALT/SGPT 20 U/L (13-56); Albumin, Serum 3.5 g/dL (3.2-5.0); Alkaline Phosphatase 119 U/L (45-117); Anion Gap 6 (5-15); BUN 11 mg/dL (7-18); BUN/Creat Ratio 13.1 RATIO (10-20); Calcium,Total 9.2 mg/dL (8.5-10.1); Chloride 106 mmol/L (98-107); Creatinine, Serum 0.84 mg/dL (0.55-1.02); EST Glomerular Filtration Rate 76 mL/min (>60); Est Glom Filt Rate - Afr Amer 92 mL/min (>60); Glucose 91 mg/dL (74-106); Potassium 3.7 mmol/L (3.5-5.1); Protein, Total 7.5 g/dL (6.4-8.2); Sodium Level 138 mmol/L (136-145)
[2024-08-09 08:10] LABS: Carcinoembryonic Antigen 1.4 ng/mL (0.0-4.7)
== END | disposition home or self-care (01) ==
PROVIDERS: PCP Internal Medicine
DX: Z85.038 Personal history of other malignant neoplasm of large intestine (principal)
CPT/HCPCS: 36415; 80053; 82378; 85027

== ENCOUNTER → 2025-03-06 | Outpatient (CLI) | payer OTHER, SELFPAY ==
--- NOTE | 2025-03-06 13:13 | RAD_ITS ---
EXAM: XR Chest, 2 Views CLINICAL INDICATION: CHEST PAIN/DYSPNEA TECHNIQUE: Frontal and lateral views of the chest. COMPARISON: No relevant prior studies available. FINDINGS: LUNGS AND PLEURAL SPACES: Unremarkable. No consolidation. No pneumothorax. HEART: Unremarkable. No cardiomegaly. MEDIASTINUM: Unremarkable. Normal mediastinal contour. BONES/JOINTS: Unremarkable. No acute fracture. RAD/Chest PA and Lateral IMPRESSION: No acute cardiopulmonary process. Reading [facility]
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
[2025-03-06 13:33] LABS: Hematocrit 37.9 % (37-47); Hemoglobin 13.0 g/dL (12.0-15.0); Immature Granulocytes Count 0.060 X10^3/uL (0.0-0.0); Mean Corp Hgb Conc 34.3 g/dL (32-36); Mean Corpuscular Volume 85.6 fL (81-99); Mean Platelet Vol. 9.4 fl (6.2-12.0); NRBC Flagged by Analyzer 0 % (0-5); Platelet Count 273 K/mm3 (150-450); RBC Distribution Width CV 13.2 % (11.6-14.6); RBC Distribution Width SD 40.9 fl (35.1-43.9); Red Blood Count 4.43 M/mm3 (4.2-5.4); White Blood Count 9.8 K/mm3 (4.4-11.0)
[2025-03-06 13:44] LABS: D-Dimer Quantitative (DVT/PE) 0.36 FEU/ug/m (0.27-0.49)
[2025-03-06 14:27] LABS: AST(SGOT) 16 U/L (<=31); Alanine Aminotransfer ALT/SGPT 10 U/L (<=34); Albumin, Serum 3.9 g/dL (3.5-5.0); Alkaline Phosphatase 101 U/L (35-104); Anion Gap 11 (5-15); BUN 9 mg/dL (4-19); BUN/Creat Ratio 11.1 RATIO (10-20); Calcium,Total 9.0 mg/dL (7.6-11.0); Carbon Dioxide 23.3 mmol/L (21.0-32.0); Chloride 103 mmol/L (98-108); Cholesterol 160 mg/dL (<=200); Free T3 2.3 pg/mL (2.18-3.98); Globulin 2.9 g/dL (2.2-4.2); Glucose 123 mg/dL (70-99); Low Density Lipoprotein Calc. 92 mg/dL; Magnesium 2.0 mg/dL (1.5-2.2); Potassium 3.5 mmol/L (3.3-5.1); Triglycerides 116 mg/dL; Very Low Density Lipoprotein 23 mg/dL (5-40); Vitamin D,25 Hydroxy 54.9 ng/mL (30-100); cholesterol:hdl ratio screen 3.58
== END | disposition home or self-care (01) ==
PROVIDERS: PCP Internal Medicine; Referring Provider Internal Medicine; Visit Provider Internal Medicine
DX: Z00.00 Encounter for general adult medical examination without abnormal findings (principal); E88.819 Insulin resistance, unspecified; E89.0 Postprocedural hypothyroidism; R73.9 Hyperglycemia, unspecified; E55.9 Vitamin D deficiency, unspecified; Z13.220 Encounter for screening for lipoid disorders; R07.9 Chest pain, unspecified; R63.5 Abnormal weight gain; R06.00 Dyspnea, unspecified
CPT/HCPCS: 36415; 71046; 80053; 80061; 82306; 83036; 83735; 84439; 84443; 84481; 85025; 85379

== ENCOUNTER → 2025-05-06 | Outpatient (CLI) | payer OTHER, SELFPAY ==
--- NOTE | 2025-05-07 12:20 | STRESSREP ---
Stress Test Report Date: 05/06/2025 Procedure: Exercise tolerance test Indications: Chest pain Consent: Per the patient Procedure: The patient exercised on a Pj protocol for 3 minutes and 31 seconds achieving a peak heart rate of 148 bpm (88% predicted maximal heart rate) with a peak blood pressure 208/102 mmHg and a peak MET capacity of approximately 5.8 MET's. The baseline ECG demonstrated sinus rhythm. The peak exercise ECG showed sinus tachycardia with no ischemic changes. There were no cardiac dysrhythmias pretest, during exercise, or recovery. The functional capacity was considered poor. The patient had no complaints of chest discomfort during exercise or recovery. The examination was discontinued secondary to target heart rate being achieved and exaggerated blood pressure response. Impression: 1. Technically adequate (percent predicted maximal heart rate greater than 85%) exercise tolerance test 2. Peak exercise ECG with no ischemic changes. Poor functional capacity. 3. There were no cardiac dysrhythmias during exercise or recovery 4. Exaggerated blood pressure response to exercise. This note was generated with [employer] software. It may contain incorrect words, spelling, and punctuation that were not noted in checking the note before signing.
== END | disposition home or self-care (01) ==
LOC: CVS 12:23
PROVIDERS: PCP Internal Medicine; Referring Provider Internal Medicine; Visit Provider Internal Medicine
DX: R07.9 Chest pain, unspecified (principal); R06.00 Dyspnea, unspecified
CPT/HCPCS: 93017